=== PATIENT | female | born 1940 | race Caucasian/White ===

== ENCOUNTER → 2016-09-02 | Outpatient (CLI) | payer OTHER, BC | LOC: FIMAGING 10:36 | DX: Z12.31 Encounter for screening mammogram for malignant neoplasm of breast (principal) | CPT/HCPCS: G0202 ==

== ENCOUNTER → 2017-09-29 | Outpatient (CLI) | payer OTHER, BC | LOC: FIMAGING 09:20 | PROVIDERS: ATTEND Internal Medicine | DX: Z12.31 Encounter for screening mammogram for malignant neoplasm of breast (principal) ==

== ENCOUNTER 2018-04-02 10:49 | Inpatient (IN) | payer OTHER, BC ==
[2018-04-02] MEDS ORDERED: DILTIAZEM 125 MG in D5W 125 ML IV ONE (11:04)
[2018-04-02] MEDS ORDERED: DILTIAZEM 25 MG/5 ML VIAL IVP ONE ×2 (11:04→14:46)
[2018-04-02 11:24] LABS: PLATELET COUNT 316 10^3/uL (150-400)
[2018-04-02] MEDS ORDERED: DILTIAZEM HCL/D5W 125 ML IV ONE (11:30)
[2018-04-02] MEDS ORDERED: ENOXAPARIN 80 MG/0.8 ML SYR SC ONE (11:49)
--- NOTE | 2018-04-02 11:50 | EDPHY ---
H & P Smoking Status: Former smoker Time Seen by Provider: 04/02/18 10:52 HPI/ROS: CHIEF COMPLAINT: Chest pain and shortness of breath HISTORY OF PRESENT ILLNESS: Patient is a 69-year-old female with a history of hypertension dyslipidemia brought here by EMS for reported chest pain starting approximately 1 hr prior to arrival. She states that she is feeling well this morning and went for her normal 2 mi walk and then sat down for breakfast when she developed pressure-like sensation to her chest which is nonradiating. She also developed some mild shortness of breath. She has no history of arrhythmia , pulmonary embolism, CHF. She has had no fever or chills and had no cough. She has noticed no leg swelling. She takes diltiazem for hypertension. REVIEW OF SYSTEMS: Constitutional: No fever, no chills. Eyes: No discharge. ENT: No sore throat. Cardiovascular: + chest pain, no palpitations. Respiratory: No cough, no shortness of breath. Gastrointestinal: No abdominal pain, no vomiting. Genitourinary: No hematuria. Musculoskeletal: No back pain. Skin: No rashes. Neurological: No headache. (Hugh Nicole) Physical Exam: General Appearance: Alert and no distress. Eyes: Pupils equal and round no injection. Respiratory: Chest is nontender, lungs are clear to auscultation. Cardiac: regular rate and rhythm. Gastrointestinal: Abdomen is soft and nontender, no masses, bowel sounds normal. Musculoskeletal: Neck is supple and nontender. Extremities have full range of motion and are nontender. Skin: No rashes or lesions. (Hugh Nicole) Constitutional: Initial Vital Signs Temperature (C) 36.6 C 04/02/18 10:57 Heart Rate 153 H 04/02/18 10:57 Respiratory Rate 18 04/02/18 10:57 Blood Pressure 165/116 H 04/02/18 10:57 O2 Sat (%) 95 04/02/18 10:57 O2 Delivery Mode Room Air Allergies/Adverse Reactions: tetracycline [Tetracycline] Allergy (Severe, Verified 04/02/18 12:09) mouth swells up Home Medications: Medication Instructions Recorded Atorvastatin Calcium [Lipitor 10 10 mg PO DAILY 04/02/18 mg (*)] Cetirizine [ZyrTEC 10 mg (*)] 10 mg PO DAILY 04/02/18 Diltiazem HCl [Diltiazem ER] 180 mg PO DAILY 04/02/18 Triamterene/Hctz 75/50 [Maxzide 0.5 tab PO DAILY 04/02/18 75-50 mg Tab (*)] Medical Decision Making - Diagnostics Imaging Results: Imaging Impressions Chest X-Ray 04/02/18 10:54 Impression: 1. Borderline cardiomegaly. 2. No active cardiopulmonary disease seen. ED Course/Re-evaluation: The 77-year-old female here with a chest pain and shortness of breath found to have atrial fibrillation with rapid ventricular response. She was started on diltiazem with 20 mg push and then drip was started. Her heart rate improved and blood pressure remained stable. Initial EKG did show possible ST depression in the septal leads but no ST elevation. Initial troponin was 0.0 2 and she was given aspirin 325. She was admitted for further evaluation. Dr. Richardson was able to speak with Cardiology so they were notified of the patient before time of admission. (Hugh Nicole) Other Provider: The patient was initially seen and evaluated by PA with the complaint of chest pain. Please see their dictation for complete details. I reviewed the database, medical/surgical history, and ED course. On my physical examination I found the following: The patient is in now onset atrial fibrillation. Plan: This patient has a normal troponin. Her EKG reveals rate-related ischemia. After administering Diltiazem, her rate has been controlled and she is in no distress. 80mg SC Lovenox administered. 1153: I consulted with hospitalist service, Dr. Renee accepts admission of this patient. 1153: I consulted with Dr. Seo, materials technician, regarding this patient. He agrees to consult on this patient during her admission. The patient will need an echocardiogram tomorrow. The midlevel and I discussed the care, treatment, and disposition of the patient. (Ricci Richardson) - Data Points Laboratory Results: Laboratory Results 04/02/18 10:55 04/02/18 10:55 04/02/18 04/02/18 04/02/18 10:56 10:55 10:55 WBC RBC Hgb Hct MCV MCH MCHC RDW Plt Count MPV Neut % (Auto) Lymph % (Auto) Fisher % (Auto) Eos % (Auto) Baso % (Auto) Nucleat RBC Rel Count Absolute Neuts (auto) Absolute Lymphs (auto) Absolute Monos (auto) Absolute Eos (auto) Absolute Basos (auto) Absolute Nucleated RBC Immature Gran % Immature Gran # Sodium Potassium Chloride Carbon Dioxide Anion Gap BUN Creatinine Estimated GFR Glucose Calcium Magnesium 1.9 mg/dL mg/dL (1.6-2.3) POC Troponin I 0.02 ng/mL ng/mL (0.00-0.08) Troponin I 0.019 ng/mL ng/mL (0.000-0.034) TSH 1.440 uIU/mL uIU/mL (0.465-4.680) 04/02/18 04/02/18 10:55 10:55 WBC 7.44 10^3/uL 10^3/uL (3.80-9.50) RBC 5.40 10^6/uL H 10^6/uL (4.18-5.33) Hgb 16.3 g/dL g/dL (12.6-16.3) Hct 48.1 % H % (38.0-47.0) MCV 89.1 fL fL (81.5-99.8) MCH 30.2 pg pg (27.9-34.1) MCHC 33.9 g/dL g/dL (32.4-36.7) RDW 13.2 % % (11.5-15.2) Plt Count 316 10^3/uL 10^3/uL (150-400) MPV 9.4 fL fL (8.7-11.7) Neut % (Auto) 38.4 % L % (39.3-74.2) Lymph % (Auto) 49.6 % H % (15.0-45.0) Fisher % (Auto) 9.3 % % (4.5-13.0) Eos % (Auto) 1.9 % % (0.6-7.6) Baso % (Auto) 0.5 % % (0.3-1.7) Nucleat RBC Rel Count 0.0 % % (0.0-0.2) Absolute Neuts (auto) 2.86 10^3/uL 10^3/uL (1.70-6.50) Absolute Lymphs (auto) 3.69 10^3/uL H 10^3/uL (1.00-3.00) Absolute Monos (auto) 0.69 10^3/uL 10^3/uL (0.30-0.80) Absolute Eos (auto) 0.14 10^3/uL 10^3/uL (0.03-0.40) Absolute Basos (auto) 0.04 10^3/uL 10^3/uL (0.02-0.10) Absolute Nucleated RBC 0.00 10^3/uL 10^3/uL (0-0.01) Immature Gran % 0.3 % % (0.0-1.1) Immature Gran # 0.02 10^3/uL 10^3/uL (0.00-0.10) Sodium 141 mEq/L mEq/L (135-145) Potassium 3.7 mEq/L mEq/L (3.3-5.0) Chloride 103 mEq/L mEq/L (97-110) Carbon Dioxide 24 mEq/l mEq/l (22-31) Anion Gap 14 mEq/L mEq/L (8-16) BUN 13 mg/dL mg/dL (7-23) Creatinine 0.8 mg/dL mg/dL (0.6-1.0) Estimated GFR > 60 Glucose 153 mg/dL H mg/dL (70-100) Calcium 10.0 mg/dL mg/dL (8.5-10.4) Magnesium POC Troponin I Troponin I TSH Medications Given: Diltiazem HCl (Cardizem 25 Mg/5 Ml Vial) 20 mg IVP ONCE [facility] Stop: 09/29/18 14:44 Last Admin: 04/02/18 14:49 Dose: 20 mg Discontinued Medications Digoxin (Lanoxin Injections) 250 mcg IVP ONCE ONE Stop: 04/02/18 12:51 Last Admin: 04/02/18 14:10 Dose: 250 mcg Diltiazem HCl (Cardizem 25 Mg/5 Ml Vial) 20 mg IVP EDNOW ONE Stop: 04/02/18 11:05 Last Admin: 04/02/18 11:12 Dose: 20 mg Enoxaparin Sodium (Lovenox) 80 mg SC EDNOW ONE Stop: 04/02/18 11:50 Last Admin: 04/02/18 13:09 Dose: 80 mg Diltiazem HCl 125 mg/ Dextrose 125 mls @ 0 mls/hr IV EDNOW ONE; As Directed PRN Reason: Protocol Stop: 04/02/18 11:05 Last Admin: 04/02/18 12:05 Dose: Not Given Diltiazem/Dextrose (Diltiazem 125mg/125ml (Premix)) 125 mls @ 0 mls/hr IV EDNOW ONE; As Directed PRN Reason: Protocol Stop: 04/02/18 11:31 Last Admin: 04/02/18 11:44 Dose: 125 mls Point of Care Test Results: Chemistry 04/02/18 10:56 POC Troponin I 0.02 ng/mL ng/mL (0.00-0.08) Departure - Departure Disposition: [facility] Inpatient Acute Condition: Good
[2018-04-02] MEDS ORDERED: DILTIAZEM 125 MG in D5W 125 ML IV SCH (12:45)
[2018-04-02] MEDS ORDERED: ONDANSETRON 4 MG/2 ML VIAL IVP PRN (12:47)
[2018-04-02] MEDS ORDERED: ONDANSETRON DISINTEGRATING 4 MG TAB PO PRN (12:47)
[2018-04-02] MEDS ORDERED: DIGOXIN 500 MCG/2 ML AMP IVP ONE ×3 (12:50→20:00)
--- NOTE | 2018-04-02 13:17 | GHP ---
DATE OF ADMISSION: 04/02/2018 The patient is a pleasant 77-year-old female, had a history of hypertension, hyperlipidemia, who pres ents with palpitations and chest pressure. This occurred after a walk this morning. After a walk, s he felt some palpitations and pain in her chest, and subsequently sought care. She denies palpitatio ns. She says she walks frequently with her daughter. Her daughter says she has noted perhaps a bit of decline of endurance but no precipitous drop, and this is attributed to getting older. She has no PND, orthopnea, or lower extremity edema. She drinks rare alcohol, and no previous history of cardi ac problems. REVIEW OF SYSTEMS: Complete 10-point review of systems conducted, negative except as noted in the HP I. PAST MEDICAL HISTORY: Hypertension, hyperlipidemia. ALLERGIES: Tetracyclines. HOME MEDICATIONS: Atorvastatin, cetirizine, diltiazem, triamterene/hydrochlorothiazide. SOCIAL HISTORY: Rare alcohol. No tobacco. Originally from [place], [place], moved to [place] 2 year s ago. FAMILY HISTORY: Parents . PHYSICAL EXAMINATION: VITAL SIGNS: Temp 36.6, blood pressure 165/116, pulse 153, breathing 18 times a minute, 95% on room air. GENERAL: No acute distress. HEENT: Sclerae anicteric. Oropharynx dilcia r. Mucous membranes are moist. NECK: Supple, without lymphadenopathy or JVD. LUNGS: Clear to aus cultation bilaterally. HEART: S1, S2. ABDOMEN: Soft, nontender, nondistended. LOWER EXTREMITIES: Without edema. Calves nontender. SKIN: Without rash. NEUROLOGIC: Nonfocal. Chest x-ray, interpreted by me, shows no acute cardiopulmonary disease. EKG, interpreted by me, show s atrial fibrillation at 140, with normal axis and intervals. There are on no clear ST or T-wave ayala nges. In V1 rhythm strip, it is possible that there may represent some flutter waves, although this is not seen elsewhere in the EKG. I have discussed the case Dr. Ricci Richardson. ASSESSMENT/PLAN: 77-year-old female presents with new onset atrial fibrillation versus atrial flutte r. 1. Atrial fibrillation. She is currently rapid. She is on a diltiazem drip, and ironically takes d iltiazem as an outpatient at 180 of long-acting a day. Will continue diltiazem drip. I have written her for a couple of 3 doses of IV digoxin this afternoon. She received enoxaparin in the emergency department. We will start Eliquis this evening. Her CHADS-VASc is 3 for age, hypertension, and fema le sex. 2. Hypertension. Will continue with diltiazem and lisinopril/hydrochlorothiazide. 3. Hyperlipidemia. Continue her statin. 4. Chest pain. I think this is a chest pain syndrome secondary to atrial fibrillation. She has no ischemic changes on her EKG. Echocardiogram has been ordered and I will repeat a troponin this after noon. I have low suspicion for acute coronary syndrome. 5. Prophylaxis: Therapeutically anticoagulated. DISPOSITION: Observation status. /[id number]/MODL
[2018-04-02] MEDS ORDERED: DILTIAZEM 25 MG/5 ML VIAL IVP SCH (14:45)
--- NOTE | 2018-04-02 15:17 | PDCARCONS ---
Cardiology Consult Reason for Consult: Chest pain, atrial fibrillation. Chief Complaint: Chest pressure. Requesting Physician: Dr. Niko Renee. History of Present Illness: This is a very pleasant 77-year-old female seen in consultation on the progressive care unit. Her past medical history is most significant for hypertension. She has no history of structural, ischemic or arrhythmic heart disease. Generally she feels well and is very active at her baseline. She likes to walk and go for hikes frequently. Her daughter is with her today and has noted that she may have appeared a little more short of breath here recently. Beginning at about 10 o'clock this morning the patient states that she developed the abrupt onset of diffuse chest pressure. This was associated with radiation around both sides of her chest to her scapula. This was a fairly mild sensation. She also had a sensation of "not feeling right."As result, she called her daughter who subsequently called EM S. The patient was transported to the emergency department here. On arrival here she was hemodynamically stable with an elevated heart rate. Her initial electrocardiogram demonstrated atrial fibrillation with a rapid ventricular response. She had a resting heart rate of 143 beats per minute. This was associated with an incomplete right bundle branch block with a QRS duration of [address] and T changes. Her point of care troponin was negative. She was treated with IV diltiazem which achieved an improvement in her heart rate and an improvement in her symptoms. She notes that this is her initial event. She has never had palpitations in the past. She gives no history of DVT or pleuritic chest discomfort. There is no history of hemoptysis. She denies fever, chills and night sweats. She does not abuse alcohol or drugs. She has no history of congestive heart failure and denies edema. She is treated for hypertension with a combination of diltiazem and triamterene/hydrochlorothiazide. History Information - Allergies/Home Medication List Allergies/Adverse Reactions: tetracycline [Tetracycline] Allergy (Severe, Verified 04/02/18 12:09) mouth swells up Home Medications: Atorvastatin Calcium [Lipitor 10 mg (*)] 10 mg PO DAILY 04/02/18 [Last Taken ] Cetirizine [ZyrTEC 10 mg (*)] 10 mg PO DAILY 04/02/18 [Last Taken 04/02/18] Diltiazem HCl [Diltiazem ER] 180 mg PO DAILY 04/02/18 [Last Taken 04/02/18] Triamterene/Hctz 75/50 [Maxzide 75-50 mg Tab (*)] 0.5 tab PO DAILY 04/02/18 [ Last Taken 04/01/18] I have personally reviewed and updated: family history, medical history, social history, surgical history Past Medical History: Hypertension, hyperlipidemia. - Surgical History Additional surgical history: Cholecystectomy, total abdominal hysterectomy. - Family History Positive for: non-pertinent - Social History Smoking Status: Former smoker Alcohol Use: Rarely Drug Use: None Additional social history: She lives here in [place]. She is originally from [facility]. 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 She is very active and likes to hike and walk for exercise on a daily basis. She has a daughter who is with her today. Age in Years: 75 or older Sex: Female Congestive Heart Failure History: No Hypertension History: Yes Stroke/TIA/Thromboembolism History: No Vascular Disease History: No Diabetes Mellitus: No [id number] Score: 4 Physical Exam Physical Exam: Temp Pulse Resp BP Pulse Ox 36.7 C 139 H 20 127/103 H 95 04/02/18 12:55 04/02/18 14:49 04/02/18 12:55 04/02/18 12:55 04/02/18 12:55 Constitutional: no apparent distress, appears nourished, not in pain Eyes: PERRL, anicteric sclera, EOMI Ears, Nose, Mouth, Throat: moist mucous membranes, hearing normal, ears appear normal, no oral mucosal ulcers Cardiovascular: no murmur, rub, or gallop, irregularly irregular, No edema Respiratory: no respiratory distress, no rales or rhonchi, clear to auscultation Gastrointestinal: normoactive bowel sounds, soft, non-tender abdomen, no palpable masses Genitourinary: no bladder fullness, no bladder tenderness Skin: warm, normal color, no rashes or abrasions, no fluctuance, no induration, No mottled Musculoskeletal: full muscle strength, no muscle tenderness, normal joint ROM, no joint effusions Psychiatric: interacting appropriately, not anxious, not encephalopathic, thought process linear Lymph, Heme, Immunologic: no cervical LAD, no supraclavicular LAD Lab and Imaging 04/02/18 10:55 04/02/18 10:55 WBC 7.44 10^3/uL (3.80-9.50) 04/02/18 10:55 RBC 5.40 10^6/uL (4.18-5.33) H 04/02/18 10:55 Hgb 16.3 g/dL (12.6-16.3) 04/02/18 10:55 Hct 48.1 % (38.0-47.0) H 04/02/18 10:55 MCV 89.1 fL (81.5-99.8) 04/02/18 10:55 MCH 30.2 pg (27.9-34.1) 04/02/18 10:55 MCHC 33.9 g/dL (32.4-36.7) 04/02/18 10:55 RDW 13.2 % (11.5-15.2) 04/02/18 10:55 Plt Count 316 10^3/uL (150-400) 04/02/18 10:55 MPV 9.4 fL (8.7-11.7) 04/02/18 10:55 Neut % (Auto) 38.4 % (39.3-74.2) L 04/02/18 10:55 Lymph % (Auto) 49.6 % (15.0-45.0) H 04/02/18 10:55 [place] % (Auto) 9.3 % (4.5-13.0) 04/02/18 10:55 Eos % (Auto) 1.9 % (0.6-7.6) 04/02/18 10:55 Baso % (Auto) 0.5 % (0.3-1.7) 04/02/18 10:55 Nucleat RBC Rel Count 0.0 % (0.0-0.2) 04/02/18 10:55 Absolute Neuts (auto) 2.86 10^3/uL (1.70-6.50) 04/02/18 10:55 Absolute Lymphs (auto) 3.69 10^3/uL (1.00-3.00) H 04/02/18 10:55 Absolute Monos (auto) 0.69 10^3/uL (0.30-0.80) 04/02/18 10:55 Absolute Eos (auto) 0.14 10^3/uL (0.03-0.40) 04/02/18 10:55 Absolute Basos (auto) 0.04 10^3/uL (0.02-0.10) 04/02/18 10:55 Absolute Nucleated RBC 0.00 10^3/uL (0-0.01) 04/02/18 10:55 Immature Gran % 0.3 % (0.0-1.1) 04/02/18 10:55 Immature Gran # 0.02 10^3/uL (0.00-0.10) 04/02/18 10:55 Sodium 141 mEq/L (135-145) 04/02/18 10:55 Potassium 3.7 mEq/L (3.3-5.0) 04/02/18 10:55 Chloride 103 mEq/L (97-110) 04/02/18 10:55 Carbon Dioxide 24 mEq/l (22-31) 04/02/18 10:55 Anion Gap 14 mEq/L (8-16) 04/02/18 10:55 BUN 13 mg/dL (7-23) 04/02/18 10:55 Creatinine 0.8 mg/dL (0.6-1.0) 04/02/18 10:55 Estimated GFR > 60 04/02/18 10:55 Glucose 153 mg/dL (70-100) H 04/02/18 10:55 Calcium 10.0 mg/dL (8.5-10.4) 04/02/18 10:55 Magnesium 1.9 mg/dL (1.6-2.3) 04/02/18 10:55 POC Troponin I 0.02 ng/mL (0.00-0.08) 04/02/18 10:56 Troponin I 0.019 ng/mL (0.000-0.034) 04/02/18 10:55 TSH 1.440 uIU/mL (0.465-4.680) 04/02/18 10:55 Visualized and Interpreted Chest x-ray results: Yes Visualized and Interpreted imaging results: Yes Visualized and Interpreted EKG results: Yes Telemetry: Atrial fibrillation with a rapid ventricular response. Echocardiogram: Pending for morning. A/P Assessment: 77-year-old female who arrives via EMS with a a chief complaint of chest pressure. She is found to be in rapid atrial fibrillation with an initial ECG that demonstrated nonspecific ST and T changes. There was some mild J-point elevation with some leads that appear to have lost part of the upward concavity. There are not definitive markers that suggest ST-elevation myocardial infarction and she really looks comfortable. A follow-up ECG did not suggest an involving infarct. Her initial point of care troponin was negative. Symptoms have improved with the administration of diltiazem. Her chads Vasc score is 4 placing her at significant risk for stroke. There is no indication to suggest pulmonary embolism, aortic dissection or an infectious process. Most likely the development of atrial fibrillation is related to her history of hypertension and age. Plan: 1. We will plan for rate control using IV diltiazem. I have given her another 20 mg bolus and we will continue her infusion. 2. She has been started on apixaban 5 mg twice daily for thromboprophylaxis. 3. We will plan to trend her cardiac enzymes. 4. An echocardiogram has been ordered for morning. 5. Depending on her clinical course we may plan for a SAMAN/cardioversion if she does not convert back to sinus rhythm. 6. We will follow along. Review of Systems Review of Systems: - Review of Systems Constitutional: no symptoms reported EENTM: no symptoms reported Respiratory: see HPI Cardiac: see HPI Gastrointestinal/Abdominal: no symptoms reported Genitourinary: no symptoms Musculoskelatal: no symptoms Skin: no symptoms Neurological: no symptoms Hematologic/Lymphatic: no symptoms reported Immunologic/allergic: no symptoms reported All Other Systems: Reviewed and Negative
--- NOTE | 2018-04-02 15:52 | CPEKG ---
Test Reason : OPEN Blood Pressure : / mmHG Vent. Rate : 143 BPM Atrial Rate : 134 BPM P-R Int : 103 ms QRS Dur : 090 ms QT Int : 324 ms P-R-T Axes : 162 045 047 degrees QTc Int : 500 ms Atrial fibrillation with rapid V-rate Anterior infarct, acute (LAD) Confirmed by Jamse Nina ([id number]) on 04/02/2018 3:52:08 PM Referred By: Confirmed By:James Nina
[2018-04-02] MEDS ORDERED: METOPROLOL TARTRATE 50 MG TAB PO ONE (17:15)
[2018-04-02] MEDS: METOPROLOL TARTRATE 5 MG/5 ML INJ IVP SCH ×2 (17:20→17:49)
[2018-04-02] MEDS ORDERED: APIXABAN 5 MG TAB PO SCH (21:00)
[2018-04-02] MEDS ORDERED: APIXABAN 2.5 MG TAB PO SCH ×2 (21:00)
[2018-04-02] MEDS ORDERED: METOPROLOL TARTRATE 25 MG TAB PO ONE (23:45)
[2018-04-02] MEDS ORDERED: METOPROLOL TARTRATE 5 MG/5 ML INJ IVP ONE (23:45)
[2018-04-03] MEDS: CETIRIZINE 10 MG TAB PO SCH (08:31)
[2018-04-03] MEDS: ATORVASTATIN CALCIUM 10 MG TAB PO SCH (08:31)
[2018-04-03] MEDS: METOPROLOL TARTRATE 50 MG TAB PO SCH ×2 (08:31→21:17)
[2018-04-03] MEDS ORDERED: DILTIAZEM CD 180 MG CAP PO SCH (09:00)
[2018-04-03] MEDS ORDERED: TRIAMTERENE/HCTZ 75/50 1 EACH TAB PO SCH (09:00)
--- NOTE | 2018-04-03 09:15 | HOSPPROG ---
Hospitalist Progress Note Assessment/Plan: 77 yo F w new AF/AFl, demand ischemia AF: still intermittently rapid despite dilt gtt and digoxin tsh OK candidate for SAMAN cardioversion today may need increased ginna agents demand ischemia: CP has resolved and trop peaked at 8.8 angiogram today htn: continue meds dispo: pending outcome of today's eval Subjective: case d/w dr kang. remains in AF. no further CP. unexpected trop bump Objective: Vital Signs Temp Pulse Resp BP Pulse Ox 36.4 C 142 H 16 111/69 96 04/03/18 08:00 04/03/18 08:30 04/03/18 08:00 04/03/18 08:30 04/03/18 08:00 Laboratory Results 04/03/18 05:54 04/02/18 04/03/18 04/04/18 05:59 05:59 05:59 Intake Total 650 100 Output Total 600 400 Balance 50 -300 - Physical Exam Constitutional: no apparent distress, appears nourished Eyes: PERRL, anicteric sclera Ears, Nose, Mouth, Throat: moist mucous membranes, hearing normal Cardiovascular: no murmur, rub, or gallop, irregularly irregular, tachycardia Respiratory: no respiratory distress, no rales or rhonchi Gastrointestinal: normoactive bowel sounds, soft, non-tender abdomen Genitourinary: no bladder fullness, No giles in urethra Skin: warm, normal color Musculoskeletal: full muscle strength, no muscle tenderness Neurologic: AAOx3
[2018-04-03] MEDS ORDERED: DIGOXIN 125 MCG TAB PO SCH (10:00)
[2018-04-03] MEDS ORDERED: MIDAZOLAM 2 MG/2 ML VIAL ONE (10:04)
[2018-04-03] MEDS ORDERED: LIDOCAINE 1% 300 MG/30 ML SDV ONE (10:04)
[2018-04-03] MEDS ORDERED: fentaNYL 100 MCG/2 ML INJ ONE (10:04)
[2018-04-03] MEDS ORDERED: IOPAMIDOL (ISOVUE-370) 150 ML BTL IV ONE (10:05)
--- NOTE | 2018-04-03 10:06 | PDCARPN ---
Cardiology Progress Note Chief Complaint: Chest pain Assessment/Plan: Assessment: 1. NSTEMI 2. AFib with RVR 3. Hypertension Plan: -LHC this AM -Further rec pending the results -risk and benefits discussed. No contraindication to anticoagulatin or anti platltet meds - 04/03/18 10:08 04/03/18 10:08 Subjective: Abril is a pleasant 77 year old female with PMH of HTN who presented to [facility] ED yesterday with actute onset of chest pain and found to be in Afib with RVR with no ECG changes c/w acute infarct. Trop on admit was norm and peaked at 8.8 yesterday and down to 5.7 this AM. She is pain free. NO sob. She remainsin Afib with RVR. Plan for LHC this AM. LHC discussed in detail with family. She did not received Eliquis. It was prescribed and then held. MAR has no documentation that it was ever given before being held. She did have Lovenox 80 mg SQ yestsedasy at 1300. Reviewed/Discussed With: family, hospitalist, multidisciplinary team Time Spent with Patient: greater than 25 minutes Time Spent with Patient: Greater than 25 minutes spent on this patients care, greater than 50% of time spent counseling, educating, and coordinating care regarding the above mentioned plan. Objective: Vital Signs (8 Hrs) Temp Pulse Resp BP Pulse Ox 04/03/18 08:30 142 H 111/69 04/03/18 08:00 36.4 C 16 96 04/03/18 04:00 96 14 123/97 H 98 Intake/Output (24 Hrs) 04/02/18 04/03/18 04/04/18 05:59 05:59 05:59 Intake Total 650 100 Output Total 600 400 Balance 50 -300 Intake: Oral (ml) 650 100 IV Infused (ml) 0 Diltiazem 125 mg In D5w 0 125 ml @ Per Protocol IV CONT [facility] Rx#:[id number] Output: Urine (ml) 600 400 Toilet 600 400 Other: Weight 74.4 kg Number of Voids 1 Toilet 4 Result Diagrams: 04/02/18 10:55 04/03/18 05:54 Cardiac Labs: Cardiac Lab Results (72 Hrs) 04/03/18 04/02/18 04/02/18 05:54 21:45 15:40 Troponin I 5.730 H 8.830 H 3.210 H - Physical Exam Constitutional: WDWN Ears, Nose, Mouth, Throat: moist mucous membranes Cardiovascular: no murmurs, no rubs, no gallops, irregularly irregular Peripheral Pulses: 1+: dorsalis-pedis (R), dorsalis-pedis (L), 2+: carotid (R), femoral (R) Respiratory: clear to auscultate bilat Gastrointestinal: normoactive bowel sounds, no tenderness Skin: no rashes Musculoskeletal: no muscular tenderness Neurologic: AAOx3 Psychiatric: cooperative, interactive ICD10 Worksheet Patient Problems: Problems Problem Status Onset Atrial fibrillation Acute
--- NOTE | 2018-04-03 10:10 | PDPROPOC ---
Sedation Plan of Care Sedation Plan of Care: vital signs stable, mental status noted, patient educated of risks, benefits, alternatives, patient can tolerate sedation ASA Classification: ASA 2 Planned drugs: fentanyl, midazolam Mallampati Score: Class 2 Mallampati Reference Image: Patient passed 3-3-2 rule?: Yes
[2018-04-03] MEDS ORDERED: CLOPIDOGREL BISULFATE 75 MG TAB ONE (11:14)
[2018-04-03] MEDS ORDERED: BIVALIRUDIN 250 MG/5 ML VIAL IV ONE (11:14)
[2018-04-03] MEDS ORDERED: NITROGLYCERIN 0.4 MG BTL SL PRN (11:46)
--- NOTE | 2018-04-03 14:08 | ASMTCMCOM ---
CM Note CM Note Notes: 77yr old female admitted for Afib. Patient has a Hx of HTN, HLD, CP. Her daughter Abril is her MPOA. 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 May not have discharge needs. Date Signed: 04/03/2018 02:07 PM Electronically Signed By:Tanya Casey LCSW
--- NOTE | 2018-04-03 14:44 | ECHO ---
[email or web address] [address] [address] Main: [phone] Fax: Transthoracic Echocardiogram Name: SUNNY KLEIN MR#: [id number] Study Date: 04/03/2018 Study Time: 08:31 AM Date of : 1940 Age: 77 year(s) Height: 167.6 cm (66 in.) Weight: 73.48 kg (162 lb.) BSA: 1.83 m2 Gender: Female Examination: Echo Indication: new atrial fibrillation and elevated troponin Image Quality: Adequate Contrast: Requested by: Niko Renee BP: 111 mmHg/69 mmHg Heart Rate: Rhythm: Atrial fibrillation Indication: new atrial fibrillation and elevated troponin Procedure Staff Canvas Worker: Daphne Robin [facility] Reading Physician: Edwardo Fallon MD Requesting Provider: Conclusions: Normal size left ventricle. Mild concentric LV hypertrophy. Mildly reduced systolic LV function. Apical septal, apical lateral and apical anterior hypokinesis. Diastolic function is indeterminate due to atrial fibrillation. The ejection fraction is estimated to be 40-45 %. The left atrium is mildly dilated. Atrial septal bowing from left to right. The right atrium is mildly dilated. Mild to moderate mitral regurgitation. Aortic sclerosis is present. Mild to moderate tricuspid valve regurgitation. Right ventricular systolic pressure measures 30mmHg. No pericardial effusion. Measurements: Chambers Valvular Assessment AV/MV Valvular Assessment TV/PV Normal Normal Normal Name Value Range Name Value Range Name Value Range Ao Tia (MM): 2.9 cm (2.2 cm-3.7 AV Vmax: 1.28 m/s (1 m/s-1.7 TR Vmax: 2.52 mm/s ( - ) cm) m/s) TR PGmax: 25 mmHg ( - ) IVSd (2D): 1.1 cm (0.6 cm-1.1 AV maxP mmHg ( - ) syst. PAP: 30 mmHg ( - ) cm) LVOT Vmax: 0.60 m/s (0.7 m/s-1.1 PV Vmax: 0.90 m/s (0.6 m/s-0.9 LVDd (2D): 3.8 cm (3.9 cm-5.3 m/s) m/s) cm) MANUEL (Vmax): 1.6 cm2 ( - ) PV PGmax: 3 mmHg ( - ) LVDs (2D): 2.8 cm (2.1 cm-4 MV E Vmax: 0.76 m/s ( - ) cm) LVPWd (2D): 1.0 cm ( - ) LVOTd 2.1 cm 2.1 cm mm LVEF (BP): 44 % (>=55 %) Patient: SUNNY KLEIN Study Date: 04/03/2018 Page 1 of 2 08:31 AM EF Range: 40-45 % RVDd(2D): 3.6 cm (1.9 cm-3.8 cmmm) Continued Measurements: Chambers Valvular Assessment AV/MV Valvular Assessment TV/PV Name Value Name Value Name Value LADs Lon.6 cm MV DecTime: 128 m/s CVP (est.): 5 mmHg LA Area: 22.6 cm2 LA Volume: 68 ml LA Volume Index: 37.2 ml/m2 TAPSE: 1.3 cm RA Area: 17.9 cm2 Findings: Left Ventricle: Normal size left ventricle. Mild concentric LV hypertrophy. Mildly reduced systolic LV function. Apical septal, apical lateral and apical anterior hypokinesis. Diastolic function is indeterminate due to atrial fibrillation. The ejection fraction is estimated to be 40-45 %. Right Ventricle: Normal size right ventricle. TAPSE indicates mildly reduced RV function but it is difficult to accurately assess in the setting of rapid atrial fibrillation (131-145bpm) . Left Atrium: The left atrium is mildly dilated. Atrial septal bowing from left to right. Right Atrium: The right atrium is mildly dilated. Mitral Valve: There is mild thickening of the mitral valve leaflets. Mild to moderate mitral regurgitation. No mitral stenosis is present. Aortic Valve: The aortic valve is tri-leaflet. Aortic sclerosis is present. No aortic valve stenosis is present. Trivial aortic valve regurgitation. Tricuspid Valve: The tricuspid valve is normal in appearance and function. Mild to moderate tricuspid valve regurgitation. Right ventricular systolic pressure measures 30mmHg. The pulmonary artery pressure is normal. Pulmonic Valve: Pulmonary valve not well visualized. There is no pulmonic regurgitation seen. Aorta: Normal size aortic root measuring 2.9 cm. IVC: The IVC is normal sized. There is greater latesha 50% respiratory excursion. Pericardium: No pericardial effusion. There is pericardial fat. (No Signature Object) Patient: SUNNY KLEIN Study Date: 04/03/2018 Page 2 of 2 08:31 AM [id number]
--- NOTE | 2018-04-03 15:12 | CPIP ---
DATE OF PROCEDURE: 04/03/2018 INDICATION FOR PROCEDURE: Non ST-segment elevation myocardial infarction. SUMMARY: Ms. Romero is a pleasant 77-year-old female with a history of hypertension who presented to [facility] yesterday after acute onset of substernal chest pressure while watching t elevision. Upon arrival in the ER, she was found to be in atrial fibrillation with rapid ventricular response. Initial troponin was normal. ECG demonstrated atrial fibrillation with RVR with minimal ST depression diffusely. Through the course of her hospital stay yesterday, troponin bal to a peak of 8.9 approximately. She has had no further chest discomfort. She remains in atrial fibrillation w ith rates in the 120s and troponin is trending down to 5.7 this morning. She has no previous history of coronary artery disease. In the setting of acute onset of chest pain, elevated troponin, new onset of atrial fibrillation, matrin n for diagnostic left heart catheterization. Risks and benefits were reviewed in detail with the pat maribel and her family. PROCEDURE PERFORMED: 1. Left heart catheterization. 2. Left coronary angiography. 3. Right coronary angiography. 4. Left ventriculogram. 5. Right common femoral artery angiography. PROCEDURE: After informed consent was obtained, a 6-Greenlandic sheath was placed in the right common fem oral artery using modified Seldinger technique coupled with the micropuncture technique. She was fou nd to have a torturous iliac vessel and the sheath was upsized to a longer sheath with resolution of the tortuosity. There was noted to have significant right iliac and femoral peripheral vascular dise ase within the right system. A JL-4 catheter was used to take images of the left coronary anatomy in multiple projections. JL4 ca theter was exchanged over a guidewire for a JR4 catheter. JR4 catheter was used to take images of th e right coronary anatomy in multiple projections. JR4 catheter was exchanged over a guidewire for an angled pigtail catheter. Angled pigtail catheter was used to cross the aortic valve. LVEDP was ass essed, left ventriculogram was performed, aortic valve gradient was assessed. Angled pigtail cathete r was removed over a wire without complications. FINDINGS: 1. Left main normal size and caliber bifurcates into left anterior descending, left circumflex coron yayo artery. There is no evidence of coronary disease in the left main. 2. Left anterior descending demonstrated tortuous vessel. There is a 70% mid-LAD stenosis identifie d. There is some proximal stenosis of approximately 20% to 30% at the origin of the first diagonal b ranch. There are mild luminal irregularities within the remainder of the LAD. 3. Left circumflex vessel has mild lumen irregularities with no evidence of flow-limiting disease wi thin the circumflex or obtuse marginal branches. 4. The right coronary artery is a dominant vessel. There are mild luminal irregularities within the right coronary artery in its branch vessels. HEMODYNAMICS: 1. LVEDP 16 mmHg. 2. LVEF 40% to 45% with anterior and apical hypokinesis. 3. Aortic valve gradient none. CONCLUSION: 1. Single-vessel disease with mid-left anterior descending stenosis of 70%. 2. Mild luminal irregularities in the circumflex and right coronary artery. 3. Ischemic cardiomyopathy with anterior and apical hypokinesis with EF of 40% to 45%with LVEDP of 6 0 mmHg. I reviewed images with interventional colleague Dr. Zacarias. We will plan for intervention to the mid- LAD in the setting of acute onset of chest pain, elevated troponin, anterior wall hypokinesis, and 70 % mid-LAD lesion. /[id number]/MODL
--- NOTE | 2018-04-03 15:17 | CPIP ---
DATE OF PROCEDURE: 04/03/2018 INDICATION FOR PROCEDURE: Hel-GW-fzacwly elevation myocardial infarction, chest pain. PROCEDURE: 1. Percutaneous coronary intervention of mid LAD utilizing Synergy 2.25 x 16 mm drug-eluting stent. 2. Left coronary artery angiography. HISTORY: Briefly, a 77-year-old female who was admitted for chest pain, atrial fibrillation with RVR , was taken to the catheterization lab by Dr. Manohar Fallon, was found to have high-grade mid LAD 70% di sease. Please refer Dr. Fallon's note for full delineation of underlying coronary anatomy. The patien t was administered Plavix p.o. and started on Angiomax bolus and drip. Utilizing the EBU 3 .5 guide, a Choice PT wire was then carefully placed down to the distal LAD, which was very serpigino us in nature. Predilatation commenced with a 2.0 x 12 Emerge balloon at 8 atmospheres. After this w as performed, angiographic images were obtained, which showed improved patency of the mid LAD. We th en proceeded with stenting this vessel with a 2.25 x 16 mm Synergy drug-eluting stent. This was depl oyed successfully across the lesion at 14 atmospheres. After deployment, angiographic images were ob tained which showed excellent patency of the area. Immediately after deployment of the stent, the pa tient did go into reperfusion or a reperfusion arrhythmia into what appeared to be into VFib. We car dioverted the patient immediately at 200 joules. The patient immediately converted back into atrial fibrillation with a blood pressure of 120/70. At this time, the wire was removed. The guide cathete r was removed over the 0.035 wire, and the sheath was sutured in place. Patient tolerated the proced ure with no other issues. IMPRESSION: 1. Successful placement of 2.25 x 16 mm drug-eluting stent in the mid left anterior descending for g reater than 70% stenosis and aah-SG-czzfwil elevation myocardial infarction. 2. Single episode of ventricular fibrillation terminated with one 200-joules defibrillation. PLAN: The patient is currently clinically stable. She will be admitted to the floor. She will have her sheath discontinued 2 hours after the Angiomax is finished. Cardioversion and SAMAN will be perfo rmed by Dr. Fallon in the next 24-48 hours. /[id number]/MODL
--- NOTE | 2018-04-03 15:32 | PDMN ---
Medical Necessity Medical necessity: MCG: M230 AK: 77 yo w/ CP, dx w/ new rapid afib, dilt gtt started, initial troponin neg , cardiology consulted and further cardiac workup show elevated troponins, non ST segment elevation AK, emergent LHC completed, shows single vessel disease with mid left anterior descending stenosis of 70%, ischemic cardiomyopathy. Cont to monitor pt closely and plan for intervention to the mid LAD. Change to IP status 04/03/18 @ 1340 per MD order.
[2018-04-03] MEDS: ACETAMINOPHEN 325 MG TAB PO PRN (17:59)
[2018-04-04 06:06] LABS: PLATELET COUNT 261 10^3/uL (150-400)
--- NOTE | 2018-04-04 08:13 | CPEKG ---
Test Reason : OPEN Blood Pressure : / mmHG Vent. Rate : 124 BPM Atrial Rate : 236 BPM P-R Int : 180 ms QRS Dur : 093 ms QT Int : 330 ms P-R-T Axes : 000 -06 007 degrees QTc Int : 474 ms Atrial fibrillation Paired ventricular premature complexes Borderline T abnormalities, inferior leads Minimal ST elevation, lateral leads Lateral ST elevation is new in comparison to prior Confirmed by James Merino ([id number]) on 04/04/2018 8:13:12 AM Referred By: Confirmed By:James Merino
--- NOTE | 2018-04-04 08:14 | CPEKG ---
Test Reason : OPEN Blood Pressure : / mmHG Vent. Rate : 103 BPM Atrial Rate : 126 BPM P-R Int : 070 ms QRS Dur : 097 ms QT Int : 372 ms P-R-T Axes : 000 -08 -71 degrees QTc Int : 487 ms Atrial fibrillation Repol abnrm suggests ischemia, lateral leads T wave inversions are new in comparison to prior (which noted progressive ST/T wave changes in compar tiffany to its prior) Confirmed by James Merino ([id number]) on 04/04/2018 8:13:59 AM Referred By: Confirmed By:James Merino
[2018-04-04] MEDS: CETIRIZINE 10 MG TAB PO SCH (08:55)
[2018-04-04] MEDS: ATORVASTATIN CALCIUM 10 MG TAB PO SCH (08:55)
[2018-04-04] MEDS: CLOPIDOGREL BISULFATE 75 MG TAB PO SCH (08:55)
[2018-04-04] MEDS: METOPROLOL TARTRATE 50 MG TAB PO SCH (08:55)
[2018-04-04] MEDS ORDERED: ASPIRIN 81 MG CHEWABLE TAB PO SCH (09:00)
[2018-04-04] MEDS ORDERED: POTASSIUM CL 20 MEQ PKT PO SCH ×2 (09:45→12:15)
--- NOTE | 2018-04-04 09:51 | HOSPPROG ---
Hospitalist Progress Note Assessment/Plan: 77 yo F w new AF/AFl, demand ischemia AF: now in sinus eliquis to start 04/05 demand ischemia: LAD stent on asa/plavix/BB/statin dc asa and start eliquis 04/05 htn: continue meds dispo: home today > 30 minutes Subjective: tele: back in sinus (interp by me). ekg w diffuse twi (interp by me ). case d/w dr kang Objective: Vital Signs Temp Pulse Resp BP Pulse Ox 36.7 C 72 16 129/73 H 97 04/03/18 20:00 04/04/18 08:55 04/04/18 04:00 04/04/18 08:55 04/04/18 04:00 Laboratory Results 04/04/18 05:25 04/04/18 05:25 04/03/18 04/04/18 04/05/18 05:59 05:59 05:59 Intake Total 800 Output Total 375 Balance 425 ICD10 Worksheet Patient Problems: Problems Problem Status Onset Atrial fibrillation Acute
--- NOTE | 2018-04-04 09:53 | PDCARPN ---
Cardiology Progress Note Assessment/Plan: Assessment: 1. NSTEMI 2. AFib with RVR - CHADS VASC 6. (spontaneously converted to NSR yesterday) 3. Hypertension 4. PVD (right illiac and common femoral) 5. Ischemic CM with LVEF 40-45% 6. Hyperlipidemia (LDL approx 90 per pt's PCP, Dr. Yola Maguire) Plan: -DC metoprolol, diltiazem and triamterene/HCTZ -Start Coreg 3.125 mg bid -Will add DEAN inhibitor as an out patient due to low BP readings in hospital -Increase Atorvastatin to 40 mg daily -Continue Plavix 75 mg daily (will need for one year) -OK to take aspirin 325 mg today (Stop aspirin after today - will be on Plavix and Eliquis only) -Start Eliquis 5 mg po bid tomorrow (Wednesday, Mar). -Enroll in Cardiac Rehab -KCL 20 meq PO x one now -STAT MG pending. Need to see Mg level prior to discharge -Follow up with me next week -Follow up with Dr.Laura Maguire 1-2 weeks (I have reviewed her hospitalization with Dr. Maguire) 04/04/18 09:54 Subjective: Abril is feeling well this AM. No complaints. No chest pain,sob, pnd, orthopnea. No groin site tenderness. She has spontaneously converted to NSR in the 60's. Note ECG this am with progression of TWI and increased QTc. K of 3.4. Serum Mg pending. Trop continues to trend down. Currently approx 3.4. Echo yesterday with apical anterior, apex and apical inferior HK with EF of 40-45%. 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 Reviewed/Discussed With: family, hospitalist, multidisciplinary team Time Spent with Patient: greater than 25 minutes Time Spent with Patient: Greater than 25 minutes spent on this patients care, greater than 50% of time spent counseling, educating, and coordinating care regarding the above mentioned plan. Objective: Vital Signs (8 Hrs) Pulse Resp BP Pulse Ox 04/04/18 08:55 72 129/73 H 04/04/18 04:00 58 L 16 102/50 L 97 Intake/Output (24 Hrs) 04/03/18 04/04/18 04/05/18 05:59 05:59 05:59 Intake Total 800 Output Total 375 Balance 425 Intake: Oral (ml) 800 Output: Urine (ml) 375 Bedpan 375 Other: Weight 75.7 kg Intake Quantity Yes Sufficient Number of Voids Bedpan 3 Toilet 1 Number of Stools Toilet 1 Result Diagrams: 04/04/18 05:25 04/04/18 05:25 Cardiac Labs: Cardiac Lab Results (72 Hrs) 04/04/18 04/04/18 05:25 05:25 WBC 7.19 RBC 4.99 Hgb 15.3 Hct 44.5 MCV 89.2 MCH 30.7 MCHC 34.4 RDW 13.5 Plt Count 261 MPV 9.2 Neut % (Auto) 53.5 Lymph % (Auto) 33.8 [place] % (Auto) 10.0 Eos % (Auto) 2.2 Baso % (Auto) 0.4 Nucleat RBC Rel Count 0.0 Absolute Neuts (auto) 3.84 Absolute Lymphs (auto) 2.43 Absolute Monos (auto) 0.72 Absolute Eos (auto) 0.16 Absolute Basos (auto) 0.03 Absolute Nucleated RBC 0.00 Immature Gran % 0.1 Immature Gran # 0.01 Sodium 141 Potassium 3.4 Chloride 106 Carbon Dioxide 27 Anion Gap 8 BUN 12 Creatinine 0.7 Estimated GFR > 60 Glucose 96 Calcium 9.2 Troponin I 3.250 H - Physical Exam Ears, Nose, Mouth, Throat: moist mucous membranes Cardiovascular: regular rate and rhythm, no murmurs, no rubs, no gallops, other (Right groin site without hematoma or ecchymosis. ) Peripheral Pulses: 2+: carotid (R), carotid (L), femoral (R), dorsalis-pedis (R) , dorsalis-pedis (L) Respiratory: clear to auscultate bilat, no crackles, no wheezes Gastrointestinal: normoactive bowel sounds, no tenderness, no masses Skin: no rashes Musculoskeletal: no muscular tenderness Neurologic: AAOx3, CN II-XII grossly intact Psychiatric: cooperative, interactive, following commands ICD10 Worksheet Patient Problems: Problems Problem Status Onset Atrial fibrillation Acute
[2018-04-04] MEDS ORDERED: POTASSIUM CL 20 MEQ TAB PO SCH (10:00)
--- NOTE | 2018-04-04 10:37 | CPEKG ---
Test Reason : OPEN Blood Pressure : / mmHG Vent. Rate : 067 BPM Atrial Rate : 067 BPM P-R Int : 136 ms QRS Dur : 094 ms QT Int : 579 ms P-R-T Axes : 068 -09 247 degrees QTc Int : 612 ms Sinus rhythm Probable left atrial enlargement Abnormal T, probable ischemia, widespread Prolonged QT interval Sinus rhythm has replaced atrial fibrillation Confirmed by James Merino ([id number]) on 04/04/2018 10:36:28 AM Referred By: Confirmed By:James Merino
--- NOTE | 2018-04-04 11:12 | GDS ---
DISCHARGE DIAGNOSES: 1. Atrial fibrillation with rapid ventricular response. This is a new diagnosis. 2. Coronary artery disease with 70% left anterior descending artery lesion, status post mid left ant erior descending artery stent. 3. Ventricular fibrillation in the catheterization lab. 4. Tjv-RR-ioiuhom elevation myocardial infarction with a peak troponin of 8.8. 5. Hypertension. 6. Hyperlipidemia. Please see the admission history and physical by Dr. Niko Renee. The patient presented with ches t pain and pressure. She was found to be in rapid atrial fibrillation. Her EKG did not have ischemi c changes. Her initial troponin was negative, but it bal to 3.2 and then 8.8. She underwent angiog patrick the following day showing mid LAD lesion that was stented. 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 She spontaneously converted to normal sinus rhythm. Her [id number] ASc score is 3 for hypertension, female sex and age. She was initiated on Eliquis starting tomorrow, as well as Plavix, diltiazem, and triamterene/hydrochlorothiazide was discontinued. Carvedilol was instituted. She was discharged home with a rapid cardiology followup. /[id number]/MODL
[2018-04-04] MEDS: CARVEDILOL 3.125 MG TAB PO SCH ×2 (11:46→17:24)
--- NOTE | 2018-04-04 12:07 | PDCARPN ---
Cardiology Progress Note Assessment/Plan: Assessment: 1. NSTEMI 2. AFib with RVR - CHADS VASC 6. (spontaneously converted to NSR yesterday) 3. Hypertension 4. PVD (right illiac and common femoral) 5. Ischemic CM with LVEF 40-45% 6. Hyperlipidemia (LDL approx 90 per pt's PCP, Dr. Yola Maguire) 7. Increased QTc Plan: -transfer to [facility] -pt to remain on Telemetry in the setting of increased Qtc -start Magnesium Oxide 400 mg PO daily -Give an additional Potassium Chloride 20 meq -Repeat ECG at 15:00 04/04/18 12:05 Subjective: Pt is feeling well. ECG this am demonstrates deep symmetric TWI c/w NV with increased QTc of 610 ms. K of 3.4, Mg 1.9. Recommend she remain in hospital to monitor QTc interval. Reviewed/Discussed With: family, hospitalist, multidisciplinary team Objective: Vital Signs (8 Hrs) Pulse BP 04/04/18 08:55 72 129/73 H Intake/Output (24 Hrs) 04/03/18 04/04/18 04/05/18 05:59 05:59 05:59 Intake Total 800 Output Total 375 Balance 425 Intake: Oral (ml) 800 Output: Urine (ml) 375 Bedpan 375 Other: Weight 75.7 kg Intake Quantity Yes Sufficient Number of Voids Bedpan 3 Toilet 1 Number of Stools Toilet 1 Result Diagrams: 04/04/18 05:25 04/04/18 05:25 Cardiac Labs: Cardiac Lab Results (72 Hrs) 04/04/18 05:25 Troponin I 3.250 H ICD10 Worksheet Patient Problems: Problems Problem Status Onset Atrial fibrillation Acute Chronic Disease [facility]/Transitional Care Acute
[2018-04-04] MEDS: POTASSIUM CL 20 MEQ TAB PO SCH (12:48)
[2018-04-04] MEDS: MAGNESIUM OXIDE 400 MG TAB PO SCH (12:48)
--- NOTE | 2018-04-04 16:58 | CPEKG ---
Test Reason : OPEN Blood Pressure : / mmHG Vent. Rate : 063 BPM Atrial Rate : 064 BPM P-R Int : 142 ms QRS Dur : 094 ms QT Int : 502 ms P-R-T Axes : 072 005 -89 degrees QTc Int : 514 ms Sinus rhythm Abnormal T, probable ischemia, widespread Prolonged QT interval Confirmed by James Merino ([id number]) on 04/04/2018 4:57:30 PM Referred By: Confirmed By:James Merino
[2018-04-04] MEDS ORDERED: CARVEDILOL 3.125 MG TAB PO SCH (18:00)
[2018-04-05 04:39] VITALS: BP 116/75
[2018-04-05] MEDS: ACETAMINOPHEN 325 MG TAB PO PRN (06:03)
[2018-04-05] MEDS: MAGNESIUM OXIDE 400 MG TAB PO SCH (08:22)
[2018-04-05] MEDS: CLOPIDOGREL BISULFATE 75 MG TAB PO SCH (08:22)
[2018-04-05] MEDS: POTASSIUM CL 20 MEQ TAB PO SCH (08:22)
[2018-04-05] MEDS: CARVEDILOL 3.125 MG TAB PO SCH (08:22)
[2018-04-05] MEDS: CETIRIZINE 10 MG TAB PO SCH (08:22)
[2018-04-05] MEDS ORDERED: ATORVASTATIN CALCIUM 40 MG TAB PO SCH (09:00)
--- NOTE | 2018-04-05 09:19 | PDCARPN ---
Cardiology Progress Note Assessment/Plan: Assessment: 1. NSTEMI 2. AFib with RVR - CHADS VASC 6. (spontaneously converted to NSR yesterday) 3. Hypertension 4. PVD (right illiac and common femoral) 5. Ischemic CM with LVEF 40-45% 6. Hyperlipidemia (LDL approx 90 per pt's PCP, Dr. Yola Maguire) 7. Increased QTc (significantly improved on today's ECG now approx 500 ms corrected Bazett's) Plan: -Discharge home on: Eliquis 5 mg bid, Plavix 75 mg daily, Atorvastatin 40 mg daily and Coreg 3.125 mg bid) -discontinue K supplmentation and Magnesium oxide -Follow up with me next week -Will arrange for cardiac rehab after follow up visit -Pt to follow up with Dr. Yola Maguire in 1-2 weeks. 04/04/18 12:05 04/05/18 09:20 Subjective: Abril is feeling well this AM. She did have an episode of right sided flank pain this AM. [place] different than pain on admission. Resolved with tylenol. ECG demonstrates NSR, QT interval has significantly improved from 612 ms down to approx 500 ms. Telemetry demonstrates occaisional isolated PVC's and PAC's. She remains in NSR. K of 4.2 this AM. Mg level pending. Right groin site is stable without hematoma or ecchymosis. Distal pulses are in tact. Reviewed/Discussed With: family, multidisciplinary team Objective: Vital Signs (8 Hrs) Temp Pulse Resp BP Pulse Ox 04/05/18 08:22 67 116/75 04/05/18 04:38 36.8 C 67 16 116/75 94 Intake/Output (24 Hrs) 04/04/18 04/05/18 04/06/18 05:59 05:59 05:59 Intake Total 800 200 Output Total 375 Balance 425 200 Intake: Oral (ml) 800 200 Output: Urine (ml) 375 Bedpan 375 Other: Weight 75.7 kg Intake Quantity Yes Sufficient Number of Voids Bedpan 3 Toilet 1 2 Number of Stools Toilet 1 Result Diagrams: 04/04/18 05:25 04/05/18 06:10 Cardiac Labs: Cardiac Lab Results (72 Hrs) 04/05/18 04/04/18 06:10 05:25 Troponin I 1.670 H 3.250 H - Physical Exam Ears, Nose, Mouth, Throat: moist mucous membranes Cardiovascular: regular rate and rhythm, no murmurs, no rubs, no gallops Peripheral Pulses: 0: dorsalis-pedis (R), 2+: carotid (R), carotid (L), femoral (R), dorsalis-pedis (L) Respiratory: clear to auscultate bilat Skin: no rashes Musculoskeletal: no muscular tenderness Neurologic: AAOx3, CN II-XII grossly intact Psychiatric: cooperative, interactive ICD10 Worksheet Patient Problems: Problems Problem Status Onset Atrial fibrillation Acute Chronic Disease Mgmt/Transitional Care Acute
--- NOTE | 2018-04-05 09:56 | HOSPPROG ---
Hospitalist Progress Note Assessment/Plan: 77 yo F w new AF/AFl, demand ischemia AF: now in sinus eliquis to start 04/05 demand ischemia: LAD stent on asa/plavix/BB/statin dc asa and start eliquis 04/05 htn: continue meds dispo: home today > 30 minutes Subjective: QT has shortened. no events on telemetry Objective: Vital Signs Temp Pulse Resp BP Pulse Ox 36.8 C 67 16 116/75 94 04/05/18 04:38 04/05/18 08:22 04/05/18 04:38 04/05/18 08:22 04/05/18 04:38 Laboratory Results 04/04/18 05:25 04/05/18 06:10 04/04/18 04/05/18 04/06/18 05:59 05:59 05:59 Intake Total 800 200 Output Total 375 Balance 425 200 - Physical Exam Constitutional: no apparent distress, appears nourished Eyes: PERRL, anicteric sclera Ears, Nose, Mouth, Throat: moist mucous membranes, hearing normal Cardiovascular: regular rate and rhythym, no murmur, rub, or gallop Respiratory: no respiratory distress, no rales or rhonchi Gastrointestinal: normoactive bowel sounds, soft, non-tender abdomen Genitourinary: no bladder fullness, No giles in urethra Skin: warm, normal color Musculoskeletal: full muscle strength Neurologic: AAOx3 Psychiatric: interacting appropriately ICD10 Worksheet Patient Problems: Problems Problem Status Onset Atrial fibrillation Acute Chronic Disease Mgmt/Transitional Care Acute
--- NOTE | 2018-04-05 10:10 | GDS ---
Please see yesterday's discharge summaries for clinical details. The patient remained in the hospita l overnight because of a prolonged QT of 502, and shortened 478. There were no events on telemetry. She was discharged home today. /[id number]/MODL
--- NOTE | 2018-04-05 10:43 | ASDISCHSUM ---
Discharge Information Plan Status:Home with No Needs Medically Cleared to Leave:04/05/2018 Discharge Date:04/05/2018 10:26 AM CM D/C Disposition:Home, Routine, Self-Care ADT D/C Disposition:Home, Routine, Self-Care Projected Discharge Date:04/05/2018 10:26 AM Transportation at D/C:Family Discharge Delay Reason: Follow-Up Date:04/05/2018 10:26 AM Discharge Slot: Final Diagnosis:Afib Placement Information Patient Contact Information Contact Name:ISAAC Relationship:Daughter Address:[address] City:[place] Alternate Phone: State/Zip Code:[place] [address] Email: Financial Information Financial Class:Medicare Primary Plan Desc:MEDICARE INPATIENT Primary Plan Number:[id number] Secondary Plan Desc:[employer] [facility] Secondary Plan Number:[id number] Assessment Information [facility] CM Progress Note CM Note CM Note Notes: 77yr old female admitted for Afib. Patient has a Hx of HTN, HLD, CP. Her daughter Abril is her MPOA. To go to laboratory animal care veterinarian. May not have discharge needs. Date Signed: 04/03/2018 02:07 PM Electronically Signed By:Tanya Casey LCSW LACE LACE Length of stay for Answers: 2 days current admission Acuity / Level of Answers: Yes Care: Did the patient have an inpatient admission? Comorbidities - select Answers: Other Notes: HTN; HLD; AFib all that apply # of Emergency department Answers: 1-2 visits in the last 6 months Score: 7 Date Signed: 04/05/2018 10:42 AM Electronically Signed By:Alicja Silver Case Management Discharge Plan Note Case Management Discharge Discharge Order Complete? Answers: Yes Patient to Obtain Answers: via Family Medications Transportation Arranged Answers: Family/Friends Transport will Pick (Date 04/05/2018 12:00 AM & Time) Family Notified Answers: Yes Discharge Comments Notes: Pt lives independently and discharged independently to home. No therapies ordered. Spoke with pt's RN who was supportive of this plan and stated pt would follow up with outpatient cardiac rehab. No further CM needs noted at this time. Date Signed: 04/05/2018 10:40 AM Electronically Signed By:Alicja Silver Intervention Information
--- NOTE | 2018-04-05 11:24 | CPEKG ---
Test Reason : OPEN Blood Pressure : / mmHG Vent. Rate : 068 BPM Atrial Rate : 070 BPM P-R Int : 138 ms QRS Dur : 093 ms QT Int : 478 ms P-R-T Axes : 078 007 -84 degrees QTc Int : 509 ms Sinus rhythm Atrial premature complexes Abnormal T, consider ischemia, diffuse leads Prolonged QT interval Similar to prior Confirmed by James Merino ([id number]) on 04/05/2018 11:23:46 AM Referred By: Confirmed By:James Merino
== END 2018-04-05 10:26 | disposition home or self-care (01) | DRG 246 ==
LOC: EDUNIT# → F2W 13:15 → F2N 04-03 12:11 → OBSVTOIN 04-03 13:40 → F2W 04-04 14:11
PROVIDERS: ADMIT Internal Medicine; ATTEND Internal Medicine
PROC: 027034Z Dilation of Coronary Artery, One Artery with Drug-eluting Intraluminal Device, Percutaneous Approach (ICD-10-PCS; principal; 2018-04-03)
PROC: B2151ZZ Fluoroscopy of Left Heart using Low Osmolar Contrast (ICD-10-PCS; 2018-04-03)
PROC: B2111ZZ Fluoroscopy of Multiple Coronary Arteries using Low Osmolar Contrast (ICD-10-PCS; 2018-04-03)
PROC: 4A023N7 Measurement of Cardiac Sampling and Pressure, Left Heart, Percutaneous Approach (ICD-10-PCS; 2018-04-03)
DX: I21.4 Non-ST elevation (NSTEMI) myocardial infarction (principal); I49.01 Ventricular fibrillation; I48.91 Unspecified atrial fibrillation; I25.10 Atherosclerotic heart disease of native coronary artery without angina pectoris; I73.9 Peripheral vascular disease, unspecified; I25.5 Ischemic cardiomyopathy; E78.5 Hyperlipidemia, unspecified; I10 Essential (primary) hypertension; Z87.891 Personal history of nicotine dependence
CPT/HCPCS: 84484-PO; 96365; C1725; C1769; C1874; C1887; C9606; G0008; G0378; J0583; J1160; J1644; J1650; J2250; J3010; Q9967

== ENCOUNTER → 2018-04-14 | Outpatient (CLI) | payer OTHER, BC | LOC: BHFA 10:45 | PROVIDERS: ATTEND Internal Medicine Cardiovascular Disease | DX: I21.4 Non-ST elevation (NSTEMI) myocardial infarction (principal); I48.91 Unspecified atrial fibrillation ==

== ENCOUNTER 2018-04-22 12:37 | Inpatient (IN) | payer OTHER, BC ==
[2018-04-22] MEDS ORDERED: DILTIAZEM 125 MG in D5W 125 ML IV ONE (13:03)
[2018-04-22] MEDS ORDERED: NS 500 ML IV ONE (13:03)
--- NOTE | 2018-04-22 13:03 | EDPHY ---
H & P Time Seen by Provider: 04/22/18 12:56 HPI/ROS: Chief complaint. Rapid atrial fibrillation HPI. Patient is a 78-year-old female who had an FL in middle of March with stents. Today she went to cardiac rehab and the noticed that her heart was beating fast and irregularly. The patient can't feel that she is in atrial fibrillation. She does not know how long it has been beating quickly like this. She has no dizziness or chest pain or shortness of breath. She is not aware if she is always in AFib or not. No unusual leg pain or swelling ; no fever cough ROS 10 systems were reviewed and negative with the exception of the elements mentioned in the history of present illness Past Medical/Surgical History: Recent FL with stents, atrial fibrillation, dyslipidemia, hysterectomy, cholecystectomy Social History: , nonsmoker, no alcohol Smoking Status: Former smoker Physical Exam: General Appearance: Alert well-developed female moderate distress vital signs show heart rate 127 and blood pressure is 151/114 Eyes: Pupils equal and round no pallor or injection. ENT, Mouth: Mucous membranes are moist. Respiratory: There are no retractions, lungs are clear to auscultation. Cardiovascular: Irregularly irregular rate and rhythm with tachycardia Gastrointestinal: Abdomen is soft and nontender, no masses, bowel sounds normal. Neurological: Awake and alert, sensory and motor exams grossly normal. Skin: Warm and dry, no rashes. Musculoskeletal: Neck is supple nontender. Extremities symmetrical, full range of motion. Psychiatric: Patient is oriented X 3, there is no agitation. Constitutional: Initial Vital Signs Temperature (C) 36.6 C 04/22/18 12:38 Heart Rate 127 H 04/22/18 12:38 Respiratory Rate 16 04/22/18 12:38 Blood Pressure 151/114 H 04/22/18 12:38 O2 Sat (%) 93 04/22/18 12:38 O2 Delivery Mode Room Air Allergies/Adverse Reactions: tetracycline [Tetracycline] Allergy (Severe, Verified 04/02/18 12:09) mouth swells up Home Medications: Medication Instructions Recorded Cetirizine [ZyrTEC 10 mg (*)] 10 mg PO DAILY 04/02/18 Apixaban [Eliquis] 5 mg PO BID #60 tab 04/04/18 Atorvastatin Calcium [Lipitor 40 40 mg PO DAILY #30 tab 04/04/18 mg (*)] Carvedilol [Coreg (*)] 3.125 mg PO BIDMEAL #60 tab 04/04/18 Clopidogrel Bisulfate [Plavix (*)] 75 mg PO DAILY #30 tab 04/04/18 Medical Decision Making - Diagnostics EKG Interpretation: EKG interpreted by me shows atrial fibrillation with rapid ventricular response. Left axis deviation. Diffuse T-wave flattening. No significant ST elevation or depression. Ventricular response is 152 Imaging Results: Imaging Impressions Chest X-Ray 04/22/18 13:03 Impression: 1. No active cardiopulmonary disease seen. 2. Calcified granuloma left infrahilar region with calcified left hilar lymph nodes evident. Chest x-ray interpreted by me as negative Procedures: IV normal saline, monitor. diltiazem drip ED Course/Re-evaluation: 1:35 p.m. heart rate is 170. She will also be given a bolus of diltiazem Troponin is 0.00 The is 2:05 p.m. Current heart rate 150 with blood pressure 134/92 2:25 p.m. Patient and I discussed imaging lab EKG findings. We discussed treatment plan including recommendation for admission. She expresses understanding and agreement I consulted and discussed case with Dr. Morales, hospitalist, who agrees to the admission Differential Diagnosis: 78-year-old female with recent FL and stent. In atrial fibrillation with rapid ventricular response. The so far no evidence for acute coronary syndrome - Data Points Laboratory Results: Laboratory Results 04/22/18 13:40 04/22/18 04/22/18 04/22/18 13:52 13:51 13:40 WBC RBC Hgb POC Hgb 17.7 gm/dL H gm/dL (12.6-16.3) Hct POC Hct 52 % H % (38-47) MCV MCH MCHC RDW Plt Count MPV Neut % (Auto) Lymph % (Auto) [place] % (Auto) Eos % (Auto) Baso % (Auto) Nucleat RBC Rel Count Absolute Neuts (auto) Absolute Lymphs (auto) Absolute Monos (auto) Absolute Eos (auto) Absolute Basos (auto) Absolute Nucleated RBC Immature Gran % Immature Gran # PT 15.7 SEC H SEC (12.0-15.0) INR 1.23 H (0.83-1.16) APTT 36.5 SEC SEC (23.0-38.0) POC Sodium 144 mEq/L mEq/L (135-145) Sodium POC Potassium 4.0 mEq/L mEq/L (3.3-5.0) Potassium POC Chloride 108 mEq/L mEq/L (97-110) Chloride Carbon Dioxide Anion Gap POC BUN 11 mg/dL mg/dL (7-23) BUN Creatinine POC Creatinine 0.7 mg/dL mg/dL (0.6-1.0) Estimated GFR Glucose POC Glucose 113 mg/dL H mg/dL (70-100) Calcium POC Troponin I 0.00 ng/mL ng/mL (0.00-0.08) NT-Pro-B Natriuret Pep 04/22/18 04/22/18 13:40 13:40 WBC 8.14 10^3/uL 10^3/uL (3.80-9.50) RBC 5.65 10^6/uL H 10^6/uL (4.18-5.33) Hgb 17.3 g/dL H g/dL (12.6-16.3) POC Hgb Hct 51.1 % H % (38.0-47.0) POC Hct MCV 90.4 fL fL (81.5-99.8) MCH 30.6 pg pg (27.9-34.1) MCHC 33.9 g/dL g/dL (32.4-36.7) RDW 13.0 % % (11.5-15.2) Plt Count 288 10^3/uL 10^3/uL (150-400) MPV 9.7 fL fL (8.7-11.7) Neut % (Auto) 62.3 % % (39.3-74.2) Lymph % (Auto) 29.7 % % (15.0-45.0) [place] % (Auto) 5.9 % % (4.5-13.0) Eos % (Auto) 1.5 % % (0.6-7.6) Baso % (Auto) 0.5 % % (0.3-1.7) Nucleat RBC Rel Count 0.0 % % (0.0-0.2) Absolute Neuts (auto) 5.07 10^3/uL 10^3/uL (1.70-6.50) Absolute Lymphs (auto) 2.42 10^3/uL 10^3/uL (1.00-3.00) Absolute Monos (auto) 0.48 10^3/uL 10^3/uL (0.30-0.80) Absolute Eos (auto) 0.12 10^3/uL 10^3/uL (0.03-0.40) Absolute Basos (auto) 0.04 10^3/uL 10^3/uL (0.02-0.10) Absolute Nucleated RBC 0.00 10^3/uL 10^3/uL (0-0.01) Immature Gran % 0.1 % % (0.0-1.1) Immature Gran # 0.01 10^3/uL 10^3/uL (0.00-0.10) PT INR APTT POC Sodium Sodium Pending POC Potassium Potassium Pending POC Chloride Chloride Pending Carbon Dioxide Pending Anion Gap Pending POC BUN BUN Pending Creatinine Pending POC Creatinine Estimated GFR Pending Glucose Pending POC Glucose Calcium Pending POC Troponin I NT-Pro-B Natriuret Pep Pending Medications Given: Discontinued Medications Diltiazem HCl (Cardizem 25 Mg/5 Ml Vial) 10 mg IVP EDNOW ONE Stop: 04/22/18 13:35 Last Admin: 04/22/18 13:57 Dose: 10 mg Diltiazem HCl 125 mg/ Dextrose 125 mls @ 0 mls/hr IV EDNOW ONE; As Directed PRN Reason: Protocol Stop: 04/22/18 13:04 Last Admin: 04/22/18 13:57 Dose: 125 mls Sodium Chloride (Ns) 500 mls @ 1,000 mls/hr IV EDNOW ONE PRN Reason: Protocol Stop: 04/22/18 13:32 Last Admin: 04/22/18 14:03 Dose: 500 mls Point of Care Test Results: Chemistry 04/22/18 04/22/18 13:52 13:51 POC Sodium 144 mEq/L mEq/L (135-145) POC Potassium 4.0 mEq/L mEq/L (3.3-5.0) POC Chloride 108 mEq/L mEq/L (97-110) POC BUN 11 mg/dL mg/dL (7-23) POC Creatinine 0.7 mg/dL mg/dL (0.6-1.0) POC Glucose 113 mg/dL H mg/dL (70-100) POC Troponin I 0.00 ng/mL ng/mL (0.00-0.08) ISTAT H&H 04/22/18 13:52 POC Hgb 17.7 gm/dL H gm/dL (12.6-16.3) POC Hct 52 % H % (38-47) Departure - Departure Disposition: [facility] Inpatient Acute Clinical Impression: Atrial fibrillation Qualifiers: Atrial fibrillation type: unspecified Qualified Code(s): I48.91 - Unspecified atrial fibrillation Condition: Fair Referrals: Yola Maguire MD [Primary Care Provider] - As per Instructions
[2018-04-22] MEDS ORDERED: DILTIAZEM 25 MG/5 ML VIAL IVP ONE (13:34)
[2018-04-22 13:55] LABS: PLATELET COUNT 288 10^3/uL (150-400)
--- NOTE | 2018-04-22 14:02 | CPEKG ---
Test Reason : OPEN Blood Pressure : / mmHG Vent. Rate : 152 BPM Atrial Rate : 250 BPM P-R Int : 129 ms QRS Dur : 087 ms QT Int : 301 ms P-R-T Axes : 141 -31 -56 degrees QTc Int : 479 ms Atrial fibrillation with rapid V-rate Left axis deviation Nonspecific T abnormalities, diffuse leads Confirmed by Ricci Richardson ([id number]) on 04/22/2018 2:01:43 PM Referred By: Confirmed By:Ricci Richardson
[2018-04-22 14:17] LABS: INR 1.23 (0.83-1.16); PROTIME(PATIENT) 15.7 SEC (12.0-15.0)
[2018-04-22] MEDS ORDERED: ACETAMINOPHEN 325 MG TAB PO PRN (14:23)
[2018-04-22] MEDS ORDERED: ONDANSETRON 4 MG/2 ML VIAL IVP PRN (14:23)
[2018-04-22] MEDS ORDERED: ZOLPIDEM TARTRATE 5 MG TAB PO PRN (14:23)
[2018-04-22] MEDS ORDERED: DILTIAZEM 125 MG in D5W 125 ML IV SCH (14:30)
--- NOTE | 2018-04-22 14:34 | PDGENHP ---
History and Physical History and Physical: CC: SENT FROM CARDIAC REHABILITATION CLINIC DUE TO RAPID HEART RATE HISTORY: This patient who 1st had heart disease diagnosed last month with an NSTEMI and new atrial fibrillation at that time, was at the cardiac rehabilitation clinic today when they noted she had heart rate in the 170s. She is sent to the ER and found to be in atrial fibrillation. ROS: A COMPREHENSIVE 10 SYSTEM REVIEW REVEALED NO OTHER SIGNIFICANT FINDINGS PAST MEDICAL HISTORY: NSTEMI March 2018 with stent to LAD, troponin 8.8 than with lateral T-wave inversions on most recent EKG Atrial fibrillation Hypertension Hyperlipidemia Allergies FAMILY MEDICAL HISTORY: SOCIAL HISTORY: MEDICATIONS: THE PATIENTS LIST HAS BEEN RECONCILED BY OUR CLINICAL PHARMACIST IN THE EMR. I HAVE REVIEWED THE LIST AND ORDERED APPROPRIATE MEDICINES. PHYSICAL EXAMINATION: VITAL SIGNS: CUSTOMER ACCOUNT COORDINATOR: EXAMINATION: GENERAL: ALERT, ORIENTED, GOOD MENTATION, RELAXED SKIN: WARM, DRY, GOOD COLOR, NO RASH HEENT: NORMAL NECK: NO MASS OR JVD RESPS: RELAXED LUNGS: CLEAR BREATH SOUNDS HEART: REGULAR, NO MURMUR ABDOMEN: SOFT, NONDISTENDED, NONTENDER, +BS, NO MASS UPPER EXTREMITIES: NORMAL LOWER EXTREMITIES: NO EDEMA, WARM NO BLEEDING OR BRUISING NEUROLOGIC: NORMAL SPEECH/LANGUAGE, NORMAL ELECTRONIC COURT RECORDER, NO FOCAL WEAKNESS IV SITE: [facility] NORMAL LABORATORY DATA: Potassium 5.8 today Otherwise basic met panel normal Troponin normal Mildly elevated hemoglobin at 17 RADIOLOGY STUDIES: Chest x-ray shows an old calcified granuloma otherwise nothing acute 12 LEAD EKG: Atrial fibrillation with rapid ventricular response, lateral T-wave inversions are unchanged from her most recent EKG last month ASSESSMENT: * RAPID ATRIAL FIBRILLATION WITH HISTORY OF AFIB ON ANTICOAGULATION * RECENT NON STEMI * NO EVIDENCE OF HEART FAILURE ACUTELY AT THIS TIME PLANS: I HAVE REVIEWED THE PATIENT'S CASE IN DETAIL WITH . I HAVE REVIEWED THE PATIENT'S PAST MEDICAL RECORDS PART OF THIS ASSESSMENT, INCLUDING
[2018-04-22] MEDS ORDERED: NITROGLYCERIN 0.4 MG BTL SL PRN (14:45)
--- NOTE | 2018-04-22 15:37 | PDGENHP ---
History and Physical - Chief Complaint A fib w RVR - History of Present Illness Abril Romero is a 78 yo F with a PMhx of recent NSTEMI with LAD stent placement on 04/03, ICM with TTE from 04/03 EF 40-45%, HTN, PVD, HLD who presents to [facility] for A FIb with RVR. Patient reports she started cardiac rehab earlier this week , she went in for session today and was found to be in A FIb w RVR and was sent to the ER. She reports some mild fluttering in her chest but denies any chest pain, SOB, LH, dizziness, edema, f/c, n/v, d/c, headache. She has been feeling well since her heart attack in March. History Information - Allergies/Home Medication List Allergies/Adverse Reactions: tetracycline [Tetracycline] Allergy (Severe, Verified 04/02/18 12:09) mouth swells up Home Medications: Cetirizine [ZyrTEC 10 mg (*)] 10 mg PO DAILY 04/02/18 [Last Taken 04/22/18] Nitroglycerin [Nitrostat 0.4 mg (*)] 0.4 mg SL Q5M PRN 04/22/18 [Last Taken Unknown] I have personally reviewed and updated: family history, medical history, social history, surgical history - Past Medical History atrial fibrillation, coronary artery disease, hypertension, hyperlipidemia, peripheral artery disease - Surgical History Additional surgical history: Cholecystectomy, total abdominal hysterectomy. - Family History Positive for: non-pertinent - Social History Smoking Status: Former smoker Additional social history: She lives here in [place]. She is originally from [facility] [place]. 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 She is very active and likes to hike and walk for exercise on a daily basis. She has a daughter who is with her today. Review of Systems Review of Systems: ROS: 10pt was reviewed & negative except for what was stated in HPI & below Physical Exam Physical Exam: Temp Pulse Resp BP Pulse Ox 36.6 C 162 H 16 134/92 H 94 04/22/18 12:38 04/22/18 13:59 04/22/18 13:59 04/22/18 13:59 04/22/18 13:59 Constitutional: no apparent distress Eyes: PERRL Ears, Nose, Mouth, Throat: moist mucous membranes Cardiovascular: irregularly irregular, tachycardia Respiratory: no respiratory distress, clear to auscultation Gastrointestinal: soft, non-tender abdomen Genitourinary: no bladder tenderness Skin: warm Musculoskeletal: no muscle tenderness Neurologic: AAOx3 Psychiatric: interacting appropriately Lab Data & Imaging Review 04/22/18 13:40 04/22/18 13:40 WBC 8.14 10^3/uL (3.80-9.50) 04/22/18 13:40 RBC 5.65 10^6/uL (4.18-5.33) H 04/22/18 13:40 Hgb 17.3 g/dL (12.6-16.3) H 04/22/18 13:40 POC Hgb 17.7 gm/dL (12.6-16.3) H 04/22/18 13:52 Hct 51.1 % (38.0-47.0) H 04/22/18 13:40 POC Hct 52 % (38-47) H 04/22/18 13:52 MCV 90.4 fL (81.5-99.8) 04/22/18 13:40 MCH 30.6 pg (27.9-34.1) 04/22/18 13:40 MCHC 33.9 g/dL (32.4-36.7) 04/22/18 13:40 RDW 13.0 % (11.5-15.2) 04/22/18 13:40 Plt Count 288 10^3/uL (150-400) 04/22/18 13:40 MPV 9.7 fL (8.7-11.7) 04/22/18 13:40 Neut % (Auto) 62.3 % (39.3-74.2) 04/22/18 13:40 Lymph % (Auto) 29.7 % (15.0-45.0) 04/22/18 13:40 [place] % (Auto) 5.9 % (4.5-13.0) 04/22/18 13:40 Eos % (Auto) 1.5 % (0.6-7.6) 04/22/18 13:40 Baso % (Auto) 0.5 % (0.3-1.7) 04/22/18 13:40 Nucleat RBC Rel Count 0.0 % (0.0-0.2) 04/22/18 13:40 Absolute Neuts (auto) 5.07 10^3/uL (1.70-6.50) 04/22/18 13:40 Absolute Lymphs (auto) 2.42 10^3/uL (1.00-3.00) 04/22/18 13:40 Absolute Monos (auto) 0.48 10^3/uL (0.30-0.80) 04/22/18 13:40 Absolute Eos (auto) 0.12 10^3/uL (0.03-0.40) 04/22/18 13:40 Absolute Basos (auto) 0.04 10^3/uL (0.02-0.10) 04/22/18 13:40 Absolute Nucleated RBC 0.00 10^3/uL (0-0.01) 04/22/18 13:40 Immature Gran % 0.1 % (0.0-1.1) 04/22/18 13:40 Immature Gran # 0.01 10^3/uL (0.00-0.10) 04/22/18 13:40 PT 15.7 SEC (12.0-15.0) H 04/22/18 13:40 INR 1.23 (0.83-1.16) H 04/22/18 13:40 APTT 36.5 SEC (23.0-38.0) 04/22/18 13:40 Turbidity Cancelled 04/22/18 13:40 POC Sodium 144 mEq/L (135-145) 04/22/18 13:52 Sodium Cancelled 04/22/18 13:40 POC Potassium 4.0 mEq/L (3.3-5.0) 04/22/18 13:52 Potassium Cancelled 04/22/18 13:40 POC Chloride 108 mEq/L (97-110) 04/22/18 13:52 Chloride Cancelled 04/22/18 13:40 Carbon Dioxide Cancelled 04/22/18 13:40 Anion Gap Cancelled 04/22/18 13:40 POC BUN 11 mg/dL (7-23) 04/22/18 13:52 BUN Cancelled 04/22/18 13:40 Creatinine Cancelled 04/22/18 13:40 POC Creatinine 0.7 mg/dL (0.6-1.0) 04/22/18 13:52 Estimated GFR Cancelled 04/22/18 13:40 Glucose Cancelled 04/22/18 13:40 POC Glucose 113 mg/dL (70-100) H 04/22/18 13:52 Calcium Cancelled 04/22/18 13:40 POC Troponin I 0.00 ng/mL (0.00-0.08) 04/22/18 13:51 NT-Pro-B Natriuret Pep Cancelled 04/22/18 13:40 Specimen Hemolysis Cancelled 04/22/18 13:40 Visualized and Interpreted EKG results: Yes EKG additional interpertation: A fib with RVR Assessment & Plan Assessment: Atrial fibrillation with Rapid Ventricular Rate (Acute) - Referred from cardiac rehab for A Fib w RVR - EKG on admission shows A Fib w RVR, HR 160's - S/p 10 mg IV Diltiazem in ED, started on Dilt gtt - BP currently stable - Consulted Cardiology for further evaluation, they recommend 3 doses of IV metoprolol followed by 50 mg twice daily PO and to wean diltiazem gtt - Continue Elaquis, CHADsVASC2- 6 NSTEMI, recent LAD Stent - Trop negative on admission, denies chest pain - Continue home Plavix, Atorvastatin ICM - TTE from 04/03 shows EF 40-45% - Appears euvolemic on exam - Continue home Coreg, not currently on DEAN-i, consider adding upon discharge HTN - BP WNL on admission - Continue home Coreg HLD - Continue home Statin FEN: PRN Diet: Cardiac PPx: Home Elaquis Dispo: Admit to Medicine, pending clinical course
--- NOTE | 2018-04-22 16:24 | PDCARCONS ---
Cardiology Consult Reason for Consult: Atrial fibrillation with a rapid ventricular response. Chief Complaint: Elevated heart rate noted during cardiac rehab. Requesting Physician: Dr. Dick Hernandez History of Present Illness: This is a pleasant 78-year-old female who is known to me from her previous hospitalization April 02 2018. At that time she presented with atrial fibrillation with very rapid ventricular response associated with symptoms of angina. She suffered a type [address] elevation myocardial infarction with a peak troponin just above 8. She had experienced some antecedent symptoms of effort intolerance and chest discomfort. Fortunately, her atrial fibrillation spontaneously reverted to sinus rhythm. As result, the day after her admission she underwent cardiac catheterization. This demonstrated a high-grade lesion in the mid LAD. This was treated with PCI and stenting. During the procedure apparently she experienced an episode of ventricular fibrillation. She was subsequently discharged on a low-dose of Coreg, single drug anti-platelet therapy and systemic anticoagulation in the form of apixaban. She has had follow up with Cardiology on 1 occasion since her hospital discharge and states that she has been doing very well and has not had any recurrent symptoms of chest pain or palpitations. Today she was at cardiac rehab where it was noted that her heart rate was elevated. She was noted to be in atrial fibrillation and was advised to go to the emergency department. Interestingly, she is completely asymptomatic. She states that she has been feeling excellent including today when she was in cardiac rehab. She has been taking her medications regularly. She denies any bleeding. She has not had any dizziness or lightheadedness. She notes no lower extremity edema. History Information - Allergies/Home Medication List Allergies/Adverse Reactions: tetracycline [Tetracycline] Allergy (Severe, Verified 04/02/18 12:09) mouth swells up Home Medications: Cetirizine [ZyrTEC 10 mg (*)] 10 mg PO DAILY 04/02/18 [Last Taken 04/22/18] Nitroglycerin [Nitrostat 0.4 mg (*)] 0.4 mg SL Q5M PRN 04/22/18 [Last Taken Unknown] I have personally reviewed and updated: family history, medical history, social history, surgical history Past Medical History: - Past Medical History Additional medical history: Coronary artery disease as described above. Hypertension. Hyperlipidemia. Paroxysmal atrial fibrillation - Surgical History Reports: no pertinent surgical hx - Family History Positive for: non-pertinent - Social History Smoking Status: Former smoker Alcohol Use: Rarely Additional social history: She is active at her baseline. Age in Years: 75 or older Sex: Female Congestive Heart Failure History: No Hypertension History: Yes Stroke/TIA/Thromboembolism History: No Vascular Disease History: Yes Diabetes Mellitus: No [id number] Score: 5 Physical Exam Physical Exam: Temp Pulse Resp BP Pulse Ox 36.6 C 137 H 16 145/107 H 95 04/22/18 12:38 04/22/18 16:19 04/22/18 15:47 04/22/18 16:19 04/22/18 16:19 Constitutional: no apparent distress, appears nourished, not in pain Eyes: PERRL, anicteric sclera, EOMI Ears, Nose, Mouth, Throat: moist mucous membranes, hearing normal, ears appear normal, no oral mucosal ulcers Cardiovascular: no murmur, rub, or gallop, irregularly irregular, tachycardia, No edema Respiratory: no respiratory distress, no rales or rhonchi, clear to auscultation Gastrointestinal: normoactive bowel sounds, soft, non-tender abdomen, no palpable masses Genitourinary: no bladder fullness, no bladder tenderness Skin: warm, normal color, no rashes or abrasions, no fluctuance, no induration, No mottled Musculoskeletal: full muscle strength, no muscle tenderness, normal joint ROM, no joint effusions Psychiatric: interacting appropriately, not anxious, not encephalopathic, thought process linear Lymph, Heme, Immunologic: no cervical LAD, no supraclavicular LAD Lab and Imaging 04/22/18 13:40 04/22/18 13:40 WBC 8.14 10^3/uL (3.80-9.50) 04/22/18 13:40 RBC 5.65 10^6/uL (4.18-5.33) H 04/22/18 13:40 Hgb 17.3 g/dL (12.6-16.3) H 04/22/18 13:40 POC Hgb 17.7 gm/dL (12.6-16.3) H 04/22/18 13:52 Hct 51.1 % (38.0-47.0) H 04/22/18 13:40 POC Hct 52 % (38-47) H 04/22/18 13:52 MCV 90.4 fL (81.5-99.8) 04/22/18 13:40 MCH 30.6 pg (27.9-34.1) 04/22/18 13:40 MCHC 33.9 g/dL (32.4-36.7) 04/22/18 13:40 RDW 13.0 % (11.5-15.2) 04/22/18 13:40 Plt Count 288 10^3/uL (150-400) 04/22/18 13:40 MPV 9.7 fL (8.7-11.7) 04/22/18 13:40 Neut % (Auto) 62.3 % (39.3-74.2) 04/22/18 13:40 Lymph % (Auto) 29.7 % (15.0-45.0) 04/22/18 13:40 Riley % (Auto) 5.9 % (4.5-13.0) 04/22/18 13:40 Eos % (Auto) 1.5 % (0.6-7.6) 04/22/18 13:40 Baso % (Auto) 0.5 % (0.3-1.7) 04/22/18 13:40 Nucleat RBC Rel Count 0.0 % (0.0-0.2) 04/22/18 13:40 Absolute Neuts (auto) 5.07 10^3/uL (1.70-6.50) 04/22/18 13:40 Absolute Lymphs (auto) 2.42 10^3/uL (1.00-3.00) 04/22/18 13:40 Absolute Monos (auto) 0.48 10^3/uL (0.30-0.80) 04/22/18 13:40 Absolute Eos (auto) 0.12 10^3/uL (0.03-0.40) 04/22/18 13:40 Absolute Basos (auto) 0.04 10^3/uL (0.02-0.10) 04/22/18 13:40 Absolute Nucleated RBC 0.00 10^3/uL (0-0.01) 04/22/18 13:40 Immature Gran % 0.1 % (0.0-1.1) 04/22/18 13:40 Immature Gran # 0.01 10^3/uL (0.00-0.10) 04/22/18 13:40 PT 15.7 SEC (12.0-15.0) H 04/22/18 13:40 INR 1.23 (0.83-1.16) H 04/22/18 13:40 APTT 36.5 SEC (23.0-38.0) 04/22/18 13:40 Turbidity Cancelled 04/22/18 13:40 POC Sodium 144 mEq/L (135-145) 04/22/18 13:52 Sodium Cancelled 04/22/18 13:40 POC Potassium 4.0 mEq/L (3.3-5.0) 04/22/18 13:52 Potassium Cancelled 04/22/18 13:40 POC Chloride 108 mEq/L (97-110) 04/22/18 13:52 Chloride Cancelled 04/22/18 13:40 Carbon Dioxide Cancelled 04/22/18 13:40 Anion Gap Cancelled 04/22/18 13:40 POC BUN 11 mg/dL (7-23) 04/22/18 13:52 BUN Cancelled 04/22/18 13:40 Creatinine Cancelled 04/22/18 13:40 POC Creatinine 0.7 mg/dL (0.6-1.0) 04/22/18 13:52 Estimated GFR Cancelled 04/22/18 13:40 Glucose Cancelled 04/22/18 13:40 POC Glucose 113 mg/dL (70-100) H 04/22/18 13:52 Calcium Cancelled 04/22/18 13:40 POC Troponin I 0.00 ng/mL (0.00-0.08) 04/22/18 13:51 NT-Pro-B Natriuret Pep Cancelled 04/22/18 13:40 Specimen Hemolysis Cancelled 04/22/18 13:40 A/P Assessment: 1. Paroxysmal atrial fibrillation. She presents with her 2nd episode of atrial fibrillation. She has poorly controlled heart rates. Previously, she suffered a non ST elevation myocardial infarction (type 2) in the setting of obstructive CAD. She has subsequently been revascularized. Her chads Vasc score is 5. She is completely asymptomatic and hemodynamically stable. 2. Coronary artery disease status post PCI/stenting of the mid LAD. This appears to be stable at the present time. She is on single drug anti-platelet therapy as well as systemic anticoagulation. 3. Hypertension. 4. Hyperlipidemia. Plan: 1. She will be admitted to telemetry and monitor. 2. I would like to try to rate control using beta blockers. I have written for 3 doses of IV metoprolol followed by 50 mg twice daily to be given p.o.. Coreg has been discontinued. I would like to wean her diltiazem. At this point, I do not feel compelled to try to restore sinus rhythm. It may be that she reverts back on her own. Additionally, she may continue to have paroxysmal episodes of rate controlled atrial fibrillation that are asymptomatic. 3. We will plan to continue his systemic anticoagulation. 4. We will continue her anti-platelet therapy. 5. We will follow along with you. Review of Systems Review of Systems: - Review of Systems Constitutional: no symptoms reported EENTM: no symptoms reported Respiratory: no symptoms reported Cardiac: no symptoms reported Gastrointestinal/Abdominal: no symptoms reported Genitourinary: no symptoms Musculoskelatal: no symptoms Skin: no symptoms Neurological: no symptoms Hematologic/Lymphatic: no symptoms reported Immunologic/allergic: no symptoms reported All Other Systems: Reviewed and Negative
[2018-04-22] MEDS: METOPROLOL TARTRATE 5 MG/5 ML INJ IVP SCH ×3 (16:56→17:06)
[2018-04-22] MEDS ORDERED: CARVEDILOL 3.125 MG TAB PO SCH (18:00)
[2018-04-22] MEDS ORDERED: MELATONIN 3 MG TAB PO SCH (21:00)
[2018-04-22] MEDS ORDERED: METOPROLOL TARTRATE 50 MG TAB PO SCH ×2 (21:00→21:30)
[2018-04-22] MEDS: APIXABAN 5 MG TAB PO SCH (21:30)
[2018-04-23 04:21] LABS: PLATELET COUNT 242 10^3/uL (150-400)
[2018-04-23] MEDS ORDERED: METOPROLOL TARTRATE 50 MG TAB PO SCH (08:43)
--- NOTE | 2018-04-23 08:47 | SOAPPROG ---
[facility] Progress Note Assessment/Plan: Assessment: 1. Paroxysmal atrial fibrillation. This is her 2nd occurrence of atrial fibrillation. Initially, she presented with symptoms of chest discomfort which led to the discovery of her underlying CAD. She is status post PCI/stenting of the mid LAD. On this hospitalization she was completely asymptomatic despite a rapid ventricular response. Her chads Vasc score is 4 her at increased risk for CVA. Appropriately, she has been managed with anticoagulation in the treviño setting. 2. Coronary artery disease. Status post PCI/stenting of the mid LAD. Clinically quiescent even in the setting of AFIB with RVR. 3. HTN. 4. HLP. Plan: 1. OK to d/c home. 2. I have changed the coreg to Metoprolol 50mg PO BID. 3. Continue single antiplatelet therapy with Plavix. 4. F/U with Dr. Fallon within 1 to 2 weeks. 04/23/18 08:47 Subjective: She states that she is feeling well today. Yesterday afternoon little bit after p.m. She back to sinus rhythm. She has not had any recurrent arrhythmias since then. Objective: Vital Signs Temp Pulse Resp BP Pulse Ox 36.5 C 60 15 123/87 H 92 04/23/18 07:29 04/23/18 07:29 04/23/18 07:29 04/23/18 07:29 04/23/18 07:29 Laboratory Results 04/23/18 04:12 04/22/18 04/23/18 04/24/18 05:59 05:59 05:59 Intake Total 640 Balance 640 PT 15.7 SEC (12.0-15.0) H 04/22/18 13:40 INR 1.23 (0.83-1.16) H 04/22/18 13:40 Physical Exam - Physical Exam General Appearance: WD/WN, alert, no apparent distress EENT: PERRL/EOMI, normal ENT inspection, pharynx normal, TMs normal Neck: non-tender, full range of motion, supple, normal inspection Respiratory: chest non-tender, lungs clear, normal breath sounds Cardiac/Chest: normal peripheral pulses, regular rate, rhythm Peripheral Pulses: 2+: carotid (R), carotid (L), femoral (R), femoral (L), dorsalis-pedis (R), dorsalis-pedis (L) Abdomen: normal bowel sounds, non-tender, soft Pelvic Exam: deferred Rectal: deferred Back: Normal inspection Skin: normal color, warm/dry Lymphatic: no adenopathy Extremities: normal range of motion, non-tender, normal inspection, normal capillary refill Neuro/Psych: no motor/sensory deficits, alert, normal mood/affect, oriented x 3 ICD10 Worksheet Patient Problems: Problems Problem Status Onset Chronic Disease Mgmt/Transitional Care Acute Atrial fibrillation Acute
[2018-04-23] MEDS ORDERED: ATORVASTATIN CALCIUM 40 MG TAB PO SCH (09:00)
[2018-04-23] MEDS ORDERED: CLOPIDOGREL BISULFATE 75 MG TAB PO SCH (09:00)
[2018-04-23] MEDS ORDERED: CETIRIZINE 10 MG TAB PO SCH (09:00)
--- NOTE | 2018-04-23 09:32 | ASDISCHSUM ---
Discharge Information Plan Status:Home with No Needs Medically Cleared to Leave: Discharge Date: CM D/C Disposition:Home, Routine, Self-Care ADT D/C Disposition: Projected Discharge Date: Transportation at D/C:Family Discharge Delay Reason: Follow-Up Date: Discharge Slot: Final Diagnosis: Placement Information Patient Contact Information Contact Name:ISAAC Relationship:Daughter Address:[address] [place] [address] City:[place] Alternate Phone: State/Zip Code:[place] [address] Email: Financial Information Financial Class:Medicare Primary Plan Desc:MEDICARE INPATIENT Primary Plan Number:[id number] Secondary Plan Desc:[facility] Secondary Plan Number:[id number] Assessment Information LACE LACE Length of stay for Answers: Less than 1 day current admission Acuity / Level of Answers: Yes Care: Did the patient have an inpatient admission? Comorbidities - select Answers: Coronary Artery Disease all that apply # of Emergency department Answers: 0 visits in the last 6 months Score: 5 Date Signed: 04/23/2018 09:31 AM Electronically Signed By:Liz Fairchild Intervention Information
[2018-04-23] MEDS: APIXABAN 5 MG TAB PO SCH (09:38)
--- NOTE | 2018-04-23 09:51 | PDDCSUM ---
Discharge Summary Discharge Summary: Date of Admission: 04/22/2018 Date of Discharge: 04/23/2018 Consults: Cardiology Procedures: N/A Followup: Cardiology in next 1-2 weeks Hospital Course: Abril Romero is a 78 yo F with a PMhx of recent NSTEMI with LAD stent placement on 04/03, ICM with TTE from 04/03 EF 40-45%, HTN, PVD, HLD who presented to [facility] from cardiac rehab due to A Fib with RVR. Patient went in for rehab session and was found to be in A FIb w RVR and was sent to the ER. She reports some mild fluttering in her chest but denied any chest pain, SOB, LH, dizziness, edema, f/c, n/v, d/c, headache. She was initially given 10 mg IV Diltiazem in ED with no improvement in HR and was started on Diltiazem gtt. Cardiology was consulted who recommended d/c Dilt gtt and give 5 mg IV Metoprolol and start PO Metoprolol. Patient's rate improved and overnight she converted back to NSR. She will be continued on Metoprolol 25 mg BID and is to f/u with cardiology for furher management. She will remain on Elaquis for anticoagulation given her elevated CHADsVASC score. Time spent on discharge was >35 minutes with >50% of time spent on patient education and counseling.
--- NOTE | 2018-04-23 10:00 | PDMN ---
Medical Necessity Medical [place] [facility] [id number]: 78 yo w/ acute afib w/ RVR, HR in 160s-170s, 2nd episode, BP 150s/110s, IV dilt & metoprolol required, cardiology consult, admit IP status for rate control. Hx recent NSTEMI w/ LAD stent placement on , ICM w/ TTE from 04/03, HTN, PVD, HLD
[2018-04-23 10:56] VITALS: BP 119/67
--- NOTE | 2018-04-24 18:53 | CPEKG ---
Test Reason : OPEN Blood Pressure : / mmHG Vent. Rate : 059 BPM Atrial Rate : 059 BPM P-R Int : 162 ms QRS Dur : 100 ms QT Int : 540 ms P-R-T Axes : 021 013 -89 degrees QTc Int : 535 ms Sinus rhythm Abnormal T, probable ischemia, widespread Prolonged QT interval Compared with 04/22/2018 NSR now present. T abnl noted Confirmed by Luann Crowell ([id number]) on 04/24/2018 6:53:21 PM Referred By: Confirmed By:Luann Crowell
== END 2018-04-23 11:15 | disposition home or self-care (01) | DRG 282 ==
LOC: F2W 16:05
PROVIDERS: ADMIT Internal Medicine; ATTEND Internal Medicine
DX: I48.0 Paroxysmal atrial fibrillation (principal); I21.4 Non-ST elevation (NSTEMI) myocardial infarction; E86.9 Volume depletion, unspecified; I10 Essential (primary) hypertension; E78.5 Hyperlipidemia, unspecified; I73.9 Peripheral vascular disease, unspecified; I25.5 Ischemic cardiomyopathy; I25.10 Atherosclerotic heart disease of native coronary artery without angina pectoris; Z95.5 Presence of coronary angioplasty implant and graft; Z79.01 Long term (current) use of anticoagulants
CPT/HCPCS: 82435-PO; 82565-PO; 82947-PO; 84132-PO; 84295-PO; 84484-PO; 84520-PO; 85014-PO; 96365

== ENCOUNTER → 2018-10-03 | Outpatient (CLI) | payer OTHER, BC | LOC: FIMAGING 09:33 | PROVIDERS: ATTEND Internal Medicine | DX: Z12.31 Encounter for screening mammogram for malignant neoplasm of breast (principal) ==

== ENCOUNTER → 2018-11-04 | Outpatient (CLI) | payer OTHER, BC | LOC: FIMAGING 12:28 | PROVIDERS: ATTEND Internal Medicine Cardiovascular Disease | DX: M79.661 Pain in right lower leg (principal) ==